=== PATIENT | female | born 1970 | race Caucasian/White ===

== ENCOUNTER 2017-05-04 11:24 | Inpatient (IN) ==
[2017-05-04] MEDS ORDERED: NS 1,000 ML IV ONE (13:12)
[2017-05-04] MEDS ORDERED: VANCOMYCIN 1 GM/NS 1 GM/250 ML IVPB IV ONE (13:12)
[2017-05-04] MEDS ORDERED: ZOFRAN IV ONE (13:12)
[2017-05-04] MEDS ORDERED: MORPHINE IV ONE (13:12)
--- NOTE | 2017-05-04 13:14 | PROVIDER DOCUMENTATION ---
HPI-Rash/Wound/ReCheck - General Chief Complaint: Wound Recheck Stated Complaint: WOUND RECHECK Time Seen by Provider: 05/04/17 12:42 Source: patient Allergies/Adverse Reactions: Allergies Allergy/AdvReac Type Severity Reaction Status Date / Time doxycycline Allergy Severe ANAPHYLAXIS Verified 05/02/17 17:09 orange juice Allergy Intermediate RASH Verified 05/02/17 17:09 Sulfa (Sulfonamide Allergy Intermediate Unknown Verified 05/02/17 17:09 Antibiotics) [Sulfa(Sulfonamide Antibiotics)] tramadol Allergy Intermediate RASH Verified 05/02/17 17:09 ibuprofen Allergy NAUSEA/VOMI Verified 05/02/17 17:09 TING tramadol HCl * [From Ultram] AdvReac Mild NAUSEA/VOMITING; Verified 05/02/17 17: 09 STEPHENS Home Medications: Home Medication List Medication Instructions Recorded Confirmed Last Taken Type Clindamycin HCl 300 mg PO Q6HR #28 capsule 05/02/17 Unknown Rx Hydrocodone/APAP 5 mg/325 mg 1 tab PO Q6H PRN PRN #14 tablet 05/02/17 Unknown Rx [[place]-5] Ondansetron HCl [Ondansetron HCl] 4 mg PO Q4HR 05/02/17 05/02/17 05/02/17 History - History of Present Illness-Dermatology Nature of Presenting Problem: 46 year old WF presents for a recheck of her abscess which was drained on 2016. pt reports the swelling has decreased but the erythema has spread to both hips and down into her vagina. pt reports fever have persisted, max temp 101.5, and she has developed nausea, without vomiting, loss of appetite and weakness. pt reports she has been taking prescribed meds as directed. pt reports pain is keeping her awake at night. appears uncomfortable. Location: reports: genitalia, torso Body-Front/Back: 1 - abscess 2 - erythema Quality: reports: painful Severity: reports: mild Onset/Duration: reports: last week Timing: reports: still present, constant, getting worse Context/Associated Symptoms: reports: abscess Identifiable cause?: Yes Exposure: reports: unknown cause Review of Systems - Adult - REVIEW OF SYSTEMS - ADULT Constitutional: reports: see HPI, chills, fever, fatique Eyes: reports: no symptoms reported. denies: discharge, blurred vision, double vision Ears, Nose, Mouth & Throat: reports: no symptoms reported. denies: ear discharge, ear pain, nose pain, loose teeth, throat pain, throat swelling Cardiovascular: reports: no symptoms reported. denies: chest pain, palpitations , syncope Respiratory: reports: no symptoms reported. denies: chronic cough, cough, shortness of breath, wheezing Gastrointestinal: reports: see HPI, nausea, poor appetite. denies: abdominal pain, diarrhea, vomiting Genitourinary: reports: no symptoms reported. denies: dysuria, hematuria, urgency Musculoskeletal: reports: no symptoms reported. denies: bone pain, joint pain, joint swelling, neck pain Integumentary: reports: see HPI, rash, skin sores/ulcer. denies: hives Neurological: reports: no symptoms reported Psychiatric: reports: no symptoms reported Endocrine: reports: no symptoms reported Hematologic/Lymphatic: reports: no symptoms reported Allergic/Immunologic: reports: no symptoms reported All Other Systems: Reviewed and Negative Past History - Adult - PAST MEDICAL HISTORY-ADULT Review of Records: reports: Old Records Reviewed, Nursing Assessment Review, Medications Reviewed, Social history reviewed & non-contributory. Major Childhood Illnesses: reports: denies history Cardiovascular: reports: denies history Respiratory: reports: denies history Gastrointestinal: reports: IBS Obstetrical/Gynecological: reports: endometriosis, other (uterine prolapse) Genitourinary: reports: denies history Musculoskeletal: reports: arthritis, chronic pain, fibromyalgia, intervertebral disc disease Neurological: reports: headaches/migraines Endocrine/Immune: reports: denies history Other Conditions: reports: denies history - PRIOR SURGERIES/PROCEDURES Surgical/Procedure History: reports: colonoscopy, hysterectomy, tonsillectomy, orthopedic (extremity) - IMMUNIZATION STATUS Childhood Immunizations: See Nurse Assessment Flu Vaccine: See Nurse Assessment - FAMILY HISTORY Family History: reviewed, not pertinent - SOCIAL HISTORY Smoking: cigarettes Provider spent 3-5 mins advising pt. on dangers of tobacco.: Discussed manners to quit use, and f/u contacts for add'l counseling. Substance Use: none/never Alcohol Use Frequency: never Physical Exam-General - PHYSICAL EXAM-ADULT Initial Vital Signs Reviewed: Yes - CONSTITUTIONAL General Appearance: appears well, alert, no apparent distress. negative: mild distress, moderate distress, severe distress - EYES Eyes: pink conjunctivae - HEAD, EARS, NOSE, MOUTH & THROAT HENMT: normocephalic/atraumatic, moist mucous membranes - NECK Neck: non-tender, full range of motion, supple, normal inspection - RESPIRATORY Respiratory: chest non-tender, lungs clear, normal breath sounds, no pleuratic chest pain, no respiratory distress, no accessory muscle use. negative: respiratory distress, decreased breath sounds, accessory muscle use, crackles, rales, rhonchi, stridor, wheezing - CARDIOVASCULAR Cardiovascular: normal peripheral pulses, regular rate, rhythm - GASTROINTESTINAL (ABDOMEN) Abdominal Exam: normal bowel sounds, non tender, soft - GENITOURINARY Female Genitalia/Pelvic Exam: other (erythema spreading from LLQ down into bilateral labia, left greater than right. left labia majoria tender to touch, perinuem nontender to palpation.). negative: external exam normal - LYMPHATIC Lymphatic: inguinal node tender (left) - MUSCULOSKELETAL Back Exam: normal inspection, no CVA tenderness, no vertebral tenderness. negative: CVA tenderness, decreased range of motion, swelling, vertebral tenderness Extremity: normal range of motion, non-tender, normal gait, normal inspection, no pedal edema, no calf tenderness, normal capillary refill. negative: deformity, erythema, swelling, tenderness Peripheral Pulses: radial (R): 3+, radial (L): 3+, dorsalis-pedis (R): 3+, dorsalis-pedis (L): 3+ - SKIN Integumentary: normal color, normal turgor, warm/dry, erythema, swelling (right lower pelvic region with abscess and diffuse surrounding erythema spreading to the left lateral hip, vagina and right hip region. diffusely tender to palpation. abscess has beedn drained, removed packing. area remains firm to the touch.), tenderness - NEUROLOGIC Neurologic: grossly normal, no motor/sensory deficits - PSYCHIATRIC Psych/Mental Status: normal mood/affect, normal thought content, normal thought process, oriented x 3 Progress - PLAN OF CARE/RESULTS Progress/Plan/Lab Results: Vital Signs - 8 hr 05/04/17 11:34 Temperature 98.1 F Pulse Rate 90 Respiratory Rate 18 Blood Pressure 117/61 O2 Sat by Pulse Oximetry 97 Laboratory Results - last 24 hr 05/04/17 05/04/17 05/04/17 13:25 13:25 13:25 WBC 13.31 H RBC 4.49 Hgb 14.4 Hct 42.4 MCV 94.4 MCH 32.1 H MCHC 34.0 RDW Std Deviation 13.1 Plt Count 220 MPV 10.6 H Immature Gran % (Auto) 0.4 Neut % (Auto) 72.0 Lymph % (Auto) 16.9 L [place] % (Auto) 8.9 Eos % (Auto) 1.1 Baso % (Auto) 0.7 Immature Gran # (Auto) 0.05 H Neut # (Auto) 9.59 H Lymph # (Auto) 2.25 [place] # (Auto) 1.19 H Eos # (Auto) 0.14 Baso # (Auto) 0.09 PT 12.7 INR 0.88 APTT (Factor Assay) 32.3 Sodium 134 L Potassium 4.3 D Chloride 97 L Carbon Dioxide 26 Anion Gap 10 BUN 4 L Creatinine 0.5 Estimated GFR/1.73 m2 > 60 BUN/Creatinine Ratio 8 Glucose 90 Calculated Osmolality 265 Calcium 9.1 Total Bilirubin 0.30 AST 16 ALT 9 L Alkaline Phosphatase 71 Total Protein 7.5 Albumin 3.7 Globulin 4.0 Albumin/Globulin Ratio 1.0 Plasma Lactate Urine Source Urine Color Urine Clarity Urine pH Ur Specific [place] Urine Protein Urine Ketones Urine Blood Urine Nitrite Urine Bilirubin Urine Urobilinogen Urine Microscopic RBC Urine WBC Urine Microscopic WBC Ur Epithelial Cells Urine Glucose 05/04/17 05/04/17 13:28 13:44 WBC RBC Hgb Hct MCV MCH MCHC RDW Std Deviation Plt Count MPV Immature Gran % (Auto) Neut % (Auto) Lymph % (Auto) [place] % (Auto) Eos % (Auto) Baso % (Auto) Immature Gran # (Auto) Neut # (Auto) Lymph # (Auto) [place] # (Auto) Eos # (Auto) Baso # (Auto) PT INR APTT (Factor Assay) Sodium Potassium Chloride Carbon Dioxide Anion Gap BUN Creatinine Estimated GFR/1.73 m2 BUN/Creatinine Ratio Glucose Calculated Osmolality Calcium Total Bilirubin AST ALT Alkaline Phosphatase Total Protein Albumin Globulin Albumin/Globulin Ratio Plasma Lactate 0.5 Urine Source CLEAN CATCH Urine Color YELLOW Urine Clarity CLEAR Urine pH 6.5 Ur Specific [place] 1.005 Urine Protein NEGATIVE Urine Ketones NEGATIVE Urine Blood 1+ A Urine Nitrite NEGATIVE Urine Bilirubin NEGATIVE Urine Urobilinogen NORMAL Urine Microscopic RBC <10 Urine WBC NEGATIVE Urine Microscopic WBC <10 Ur Epithelial Cells >10 A Urine Glucose NEGATIVE Orders Category Date Time Status Call Admitting on Arrival AT ADMISSION Care 05/04/17 15:26 Active Saline Loc NOW Care 05/04/17 13:[address] ABD/PELVIS W/ IV CONT ONLY [CT] Stat Exams 05/04/17 14:01 Completed BLOOD CULTURE [BLDCUL] Stat Lab 05/04/17 13:25 Results CBC WITH ELECTRONIC DIFF [HEME] Stat Lab 05/04/17 13:25 Completed COMPREHENSIVE METABOLIC PANEL [CHEM] Stat Lab 05/04/17 13:25 Completed LACTATE, PLASMA [CHEM] Stat Lab 05/04/17 13:28 Completed PROTIME WITH INR PL [COAG] Stat Lab 05/04/17 13:[address] [COAG] Stat Lab 05/04/17 13:25 Completed ROUTINE CULTURE [RM] Stat Lab 05/04/17 15:[address] W/POSS RFLX CULT [URINALYSIS] Stat Lab 05/04/17 13:44 Completed 0.9% Sodium Chloride Inj [Ns] 1,000 ml Med 05/04/17 13:12 Discontinued IV 999 mls/hr Hydromorphone [Dilaudid] Med 05/04/17 14:45 Discontinued 1 mg IV NOW ONE Morphine Med 05/04/17 13:12 Discontinued 4 mg IV NOW ONE Ondansetron [Zofran] Med 05/04/17 13:12 Discontinued 4 mg IV NOW ONE Vancomycin 1 gm/Ns Med 05/04/17 13:12 Discontinued 1 gm in 250 ml IV NOW EKG [EKG] Stat Ther 05/04/17 13:11 Ordered Transfer/Admit Order [TRANSFER] Routine Transfer 05/04/17 15:27 Ordered Laboratory Tests 05/04/17 05/04/17 05/04/17 13:25 13:25 13:25 WBC 13.31 H RBC 4.49 Hgb 14.4 Hct 42.4 MCV 94.4 MCH 32.1 H MCHC 34.0 RDW Std Deviation 13.1 Plt Count 220 MPV 10.6 H Immature Gran % (Auto) 0.4 Neut % (Auto) 72.0 Lymph % (Auto) 16.9 L [place] % (Auto) 8.9 Eos % (Auto) 1.1 Baso % (Auto) 0.7 Immature Gran # (Auto) 0.05 H Neut # (Auto) 9.59 H Lymph # (Auto) 2.25 [place] # (Auto) 1.19 H Eos # (Auto) 0.14 Baso # (Auto) 0.09 PT 12.7 INR 0.88 APTT (Factor Assay) 32.3 Sodium 134 L Potassium 4.3 D Chloride 97 L Carbon Dioxide 26 Anion Gap 10 BUN 4 L Creatinine 0.5 Estimated GFR/1.73 m2 > 60 BUN/Creatinine Ratio 8 Glucose 90 Calculated Osmolality 265 Calcium 9.1 Total Bilirubin 0.30 AST 16 ALT 9 L Alkaline Phosphatase 71 Total Protein 7.5 Albumin 3.7 Globulin 4.0 Albumin/Globulin Ratio 1.0 Plasma Lactate Urine Source Urine Color Urine Clarity Urine pH Ur Specific [place] Urine Protein Urine Ketones Urine Blood Urine Nitrite Urine Bilirubin Urine Urobilinogen Urine Microscopic RBC Urine WBC Urine Microscopic WBC Ur Epithelial Cells Urine Glucose 05/04/17 05/04/17 13:28 13:44 WBC RBC Hgb Hct MCV MCH MCHC RDW Std Deviation Plt Count MPV Immature Gran % (Auto) Neut % (Auto) Lymph % (Auto) [place] % (Auto) Eos % (Auto) Baso % (Auto) Immature Gran # (Auto) Neut # (Auto) Lymph # (Auto) [place] # (Auto) Eos # (Auto) Baso # (Auto) PT INR APTT (Factor Assay) Sodium Potassium Chloride Carbon Dioxide Anion Gap BUN Creatinine Estimated GFR/1.73 m2 BUN/Creatinine Ratio Glucose Calculated Osmolality Calcium Total Bilirubin AST ALT Alkaline Phosphatase Total Protein Albumin Globulin Albumin/Globulin Ratio Plasma Lactate 0.5 Urine Source CLEAN CATCH Urine Color YELLOW Urine Clarity CLEAR Urine pH 6.5 Ur Specific [place] 1.005 Urine Protein NEGATIVE Urine Ketones NEGATIVE Urine Blood 1+ A Urine Nitrite NEGATIVE Urine Bilirubin NEGATIVE Urine Urobilinogen NORMAL Urine Microscopic RBC <10 Urine WBC NEGATIVE Urine Microscopic WBC <10 Ur Epithelial Cells >10 A Urine Glucose NEGATIVE Orders Category Date Time Status Call Admitting on Arrival AT ADMISSION Care 05/04/17 15:26 Active Saline Loc NOW Care 05/04/17 13:[address] ABD/PELVIS W/ IV CONT ONLY [CT] Stat Exams 05/04/17 14:01 Completed BLOOD CULTURE [BLDCUL] Stat Lab 05/04/17 13:25 Results CBC WITH ELECTRONIC DIFF [HEME] Stat Lab 05/04/17 13:25 Completed COMPREHENSIVE METABOLIC PANEL [CHEM] Stat Lab 05/04/17 13:25 Completed LACTATE, PLASMA [CHEM] Stat Lab 05/04/17 13:28 Completed [address]IME WITH INR PL [COAG] Stat Lab 05/04/17 13:[address] [COAG] Stat Lab 05/04/17 13:25 Completed ROUTINE CULTURE [RM] Stat Lab 05/04/17 15:[address] W/POSS RFLX CULT [URINALYSIS] Stat Lab 05/04/17 13:44 Completed 0.9% Sodium Chloride Inj [Ns] 1,000 ml Med 05/04/17 13:12 Discontinued IV 999 mls/hr Hydromorphone [Dilaudid] Med 05/04/17 14:45 Discontinued 1 mg IV NOW ONE Morphine Med 05/04/17 13:12 Discontinued 4 mg IV NOW ONE Ondansetron [Zofran] Med 05/04/17 13:12 Discontinued 4 mg IV NOW ONE Vancomycin 1 gm/Ns Med 05/04/17 13:12 Discontinued 1 gm in 250 ml IV NOW EKG [EKG] Stat Ther 05/04/17 13:11 Ordered Transfer/Admit Order [TRANSFER] Routine Transfer 05/04/17 15:27 Ordered Vital Signs - 24 hr 05/04/17 11:34 Temperature 98.1 F Pulse Rate 90 Respiratory Rate 18 Blood Pressure 117/61 O2 Sat by Pulse Oximetry 97 Reviewed lab, radiology, H&P with Dr. Leavitt, agree with plan of care, treatment, admission. Result Diagrams: 05/04/17 13:25 05/04/17 13:25 - REASSESSMENT Reassessment #1 Time Reassessed: 14:45 Status: unchanged (pt returned from CT abd/pelvis; reports pain unchanged since morphine, will medicate with dilaudid.) Reassessment #2 Time Reassessed: 15:24 Status: improving - CT/MRI 1 CT Study: Abdomen, Pelvis Impression: Normal (left inguinal ulceration with sucbutaneous edema, no fluid collection or abscess, see EMR for additional nonacute findings. per Dr. Gaona) - CONSULTS/PCP/HOSPITALIST Notification #1 *Consult/PCP/Hospitalist*: Dr. Walker Time Discussed: 15:24 Reason/Comments: accepted admission. Consult Disposition: Admit (will evaluate upstairs) Departure - Departure Date of Disposition Decision: 05/04/17 Time of Disposition Decision: 15:24 DIAGNOSIS: Inguinal abscess Disposition: ADMITTED INPATIENT 09 Certified Medical Emergency: Emergent Condition: Stable Referrals and Follow-Ups: None,PCP [Primary Care Provider] - - Critical Care Note This patient required my direct & personal management of CC.: No Attestation - Physician/ SCOOTER Attestation Patient care was provided by Advanced Practice Provider:: Yes Advanced Practice Provider:: Dimple Hull Advanced Practice Provider documentation review:: The Mid-level provider documentation, treatment plan and medical decision making was reviewed by the physician who agrees with all treatment and medical decision making by the MLP. The physician spent face to face time with patient:: No Advanced Practice Provider documentation review:: Supervising physician onsite and consulted in the evaluation and care of this patient. The physician did not have a face to face encounter with the patient.
[2017-05-04 13:35] LABS: MANUAL DIFF NEEDED? NO
[2017-05-04 13:36] LABS: BASO% 0.7 % (0.0-0.8); EOS# 0.14 X1000 (0.0-0.7); EOS% 1.1 % (0.0-10.0); HEMATOCRIT 42.4 % (37.0-47.0); HEMOGLOBIN 14.4 g/dL (12.0-16.0); IMM GRAN# 0.05 X1000 (0.0-0.04); IMM GRAN% 0.4 % (0.0-0.5); LYMPH# 2.25 X1000 (1.2-3.4); LYMPH% 16.9 % (20.5-51.1); MCH 32.1 PG (27-31); MCV 94.4 FL (81-99); MONO# 1.19 X1000 (0.11-0.59); MONO% 8.9 % (1.7-9.3); MPV 10.6 FL (7.4-10.4); PLT 220 X1000 (130-400); RBC 4.49 XMIL (4.2-5.4)
[2017-05-04 13:49] LABS: URINE CULTURE PL NEEDED? NO
[2017-05-04 13:57] LABS: AGAP 10; ALBUMIN 3.7 g/dL (3.5-5.0); ALKALINE PHOSPHATASE 71 U/L (32-104); BUN 4 mg/dL (8-22); CALCIUM 9.1 mg/dL (8.8-10.2); CHLORIDE 97 mmol/L (98-107); COSMO 265; GOT 16 U/L (10-30); GPT 9 U/L (10-36); POTASSIUM 4.3 mmol/L (3.5-5.1); SODIUM 134 mmol/L (136-145); TCO2 26 mmol/L (25-35); TOTAL PROTEIN 7.5 g/dL (6.3-8.3)
[2017-05-04 14:02] LABS: BILIRUBIN URINE NEGATIVE (NEGATIVE); BLOOD URINE 1+ (NEGATIVE); CLARITY CLEAR (CLEAR); COLOR YELLOW; GLUCOSE URINE NEGATIVE (NEGATIVE); LEUKOCYTES URINE NEGATIVE (NEGATIVE); NITRITE URINE NEGATIVE (NEGATIVE); PH URINE 6.5; PROTEIN URINE NEGATIVE (NEGATIVE); SP GRAVITY URINE 1.005; UROBILINOGEN URINE NORMAL
[2017-05-04 14:08] LABS: INR 0.88 (0.86-1.15); PROTIME 12.7 Seconds (12.1-15.5)
[2017-05-04 14:09] LABS: PTT PL 32.3 Seconds (22.6-43.9)
[2017-05-04 14:22] LABS: URINE EPITHELIAL CELLS >10 /HPF (<10); URINE RBC <10 /HPF (<10); URINE SOURCE CLEAN CATCH; URINE WBC <10 /HPF (<10)
[2017-05-04] MEDS ORDERED: DILAUDID IV ONE (14:45)
--- NOTE | 2017-05-04 14:48 | Diag Imaging Result Doc PS360 ---
EXAM: CT ABD/PELVIS W/ IV CONT ONLY HISTORY: LLL abscess; please eval for progression TECHNIQUE: CT abdomen and pelvis with intravenous contrast. Dose reduction protocol. COMPARISON: 07/30/2016 FINDINGS: No calcified gallstones or adjacent inflammation. I believe there is mild fatty infiltration of the liver. Normal spleen, pancreas, and adrenal glands. There are several tiny renal cysts. The kidneys are otherwise normal. No hydronephrosis. No aortic aneurysm. No bowel obstruction. Normal appendix. No intra-abdominal abscess. The urinary bladder is moderately distended and appears normal. There are small ovarian cysts. The uterus has been removed. There is subcutaneous edema in the left inguinal region. There are small ulceration with an air-filled cavity measuring 18 mm in maximum diameter. No fluid collection. No soft tissue mass. Mildly prominent bilateral inguinal lymph nodes IMPRESSION: 1.Left inguinal ulceration with subcutaneous edema, but no fluid collection/abscess. 2.Mild fatty infiltration of the liver 3.Hysterectomy Electronically signed by Jeb Gaona 05/04/2017 2:46 PM
[2017-05-04] MEDS ORDERED: VANCOMYCIN IV PER PHARMACY MISC SCH (17:28)
[2017-05-04] MEDS ORDERED: TYLENOL PO PRN (17:57)
[2017-05-04] MEDS: ZOSYN 3.375 GM/NS 3.375 GM/50 ML IVPB IV SCH ×2 (18:50→23:31)
[2017-05-04] MEDS: ZOFRAN IV PRN (18:50)
[2017-05-04] MEDS: NS 1,000 ML IV SCH (18:50)
[2017-05-04] MEDS: NICODERM PATCH TD SCH (18:51)
[2017-05-04] MEDS: MORPHINE IV PRN (18:51)
--- NOTE | 2017-05-04 19:55 | HISTORY AND PHYSICAL ---
PRIMARY CARE PHYSICIAN: cSarlett Dash MD CHIEF COMPLAINT: Abscess left groin. HISTORY OF PRESENT ILLNESS: This is a 46-year-old female with a history of fibromyalgia, irritable bowel syndrome, endometriosis, chronic back pain and migraines. She presents to the emergency room for followup for a left groin abscess. Reportedly the patient presented to the emergency room 2 days prior at the start of this abscess with fevers going up as high as 102 and underwent an incision and drainage at the bedside with return of a large amount of blood-tinged purulent fluid. Culture comes back as gram-positive cocci. She was discharged on clindamycin after wound was packed. She returns today complaining of increase in pain and fever, as well as redness to this site. She said she has had some scant drainage over the last 2 days. Blood cultures were drawn. She was given vancomycin and she is being admitted for further evaluation and treatment. PAST MEDICAL HISTORY: Chronic back pain. Endometriosis. History of migraines. History of fibromyalgia. Anxiety. Depression. PAST SURGICAL HISTORY: Hysterectomy. Tubal ligation. Tonsillectomy. SOCIAL HISTORY: She smokes up to 2 packs a day with rare use of alcohol and she denies illicit drug use. ALLERGIES: Doxycycline which causes anaphylaxis. Sulfa with unknown reaction. Tramadol, Ibuprofen which cause nausea, vomiting and a rash. HOME MEDICATIONS: Clindamycin 300 mg q.6 hours. [place] 5 q.6 hours p.r.n. REVIEW OF SYSTEMS: A 14 point review of systems is discussed with patient with pertinent positives stated in the HPI. She denied chest pain, palpitations, dizziness, syncope, nausea, vomiting, diarrhea, constipation, black or bloody vomitus, black or bloody stools, hematuria, dysuria, frequency, urgency. PHYSICAL EXAMINATION: GENERAL: This is a 46-year-old female who is lying back in the bed in no distress. VITAL SIGNS: Blood pressure is 104/66 with a heart rate of 95, respirations are 18, temperature is 98.1 degrees, with room air saturation of 97-98%. HEENT: Head is normocephalic, atraumatic. Pupils equal, round, react to light. EOMs are intact. Sclerae anicteric. Mucous membranes are moist. NECK: Supple. Trachea midline. CARDIOVASCULAR: Regular rate and rhythm. S1, S2 appreciated. PULMONARY: Breath sounds are clear. No increased work of breathing noted. GASTROINTESTINAL: Abdomen is soft, nondistended, nontender with bowel sounds noted. MUSCULOSKELETAL: Good range of motion of joints with left lower extremity limited to pain. SKIN: Warm and dry with erythema noted from her left groin, extending down to her labia bilateral with left greater than right. She is tender to palpation. There is an incision about approximately 1/4 of an inch long from incision and drainage 2 days prior. There is no drainage at present. LABORATORY AND IMAGING: WBC is 13.3. Of note, it was 15.5 48 hours prior with hemoglobin 14.4, hematocrit 42.4 and platelets of 220,000. Sodium 134, potassium 4.3, BUN 4, creatinine 0.5 with a glucose of 90. Urinalysis is essentially negative. CT scan of the abdomen and pelvis revealed left inguinal ulceration with subcutaneous edema. No fluid collection or abscess. Mild fatty infiltration of the liver. Hysterectomy. No soft tissue mass. Mildly prominent bilateral inguinal lymph nodes. ASSESSMENT AND PLAN: 1. Left groin abscess, currently growing gram-positive cocci. 2. Leukocytosis. 3. Chronic back pain. 4. Anxiety and depression, history of. 5. Deep venous thrombosis prophylaxis. 6. Gastrointestinal prophylaxis. PLAN: She will be admitted to the hospital. We will give IV hydration as well as pain and nausea control. We will give vancomycin and Zosyn for antibiotic coverage. Once cultures return antibiotics may be changed according to results of sensitivities. For deep venous thrombosis prophylaxis we will use Sequential [employer]ression Devices and gastrointestinal prophylaxis Protonix. We will repeat laboratory in the morning. Further treatments pending hospital course. Dictated by CRYSTAL Bartholomew for Madhu Walker MD cc: CRYSTAL Bartholomew MD appears to be just cellulitis, no depp infection, has failed therapy with clindamycin but only took rx for 24 hours agree with above APENOT MTDD
[2017-05-04] MEDS ORDERED: VANCOMYCIN 1,800 MG in NS 250 ML IV ONE (20:00)
[2017-05-04] MEDS: PERCOCET-5 PO PRN (21:49)
[2017-05-05] MEDS: MORPHINE IV PRN ×2 (03:29→07:40)
[2017-05-05] MEDS: ZOSYN 3.375 GM/NS 3.375 GM/50 ML IVPB IV SCH ×2 (05:20→11:17)
[2017-05-05] MEDS: NS 1,000 ML IV SCH ×2 (05:20→15:59)
[2017-05-05 06:02] LABS: HEMATOCRIT 39.9 % (37.0-47.0); HEMOGLOBIN 13.1 g/dL (12.0-16.0); MCH 31.3 PG (27-31); MCHC 32.8 g/dL (33-37); MCV 95.5 FL (81-99); MPV 10.4 FL (7.4-10.4); RBC 4.18 XMIL (4.2-5.4)
[2017-05-05 06:32] LABS: AGAP 10; BUN 4 mg/dL (8-22); CALCIUM 8.5 mg/dL (8.8-10.2); CHLORIDE 108 mmol/L (98-107); COSMO 282; SODIUM 143 mmol/L (136-145); TCO2 25 mmol/L (25-35)
[2017-05-05] MEDS: VANCOMYCIN 1,350 MG in NS 250 ML IV SCH (07:40)
[2017-05-05] MEDS: PRILOSEC PO SCH (07:40)
[2017-05-05] MEDS: ZOFRAN IV PRN (08:11)
[2017-05-05] MEDS: NICODERM PATCH TD SCH (08:11)
[2017-05-05] MEDS ORDERED: KLOR-CON PO ONE (08:12)
--- NOTE | 2017-05-05 08:31 | PROGRESS NOTE ---
DATE: 05/05/2017 SUBJECTIVE: The patient notes that she is still hurting, although it is slightly better than yesterday. States the pain is somewhat more tolerable. Denies any fevers or chills currently. OBJECTIVE: Vital Signs: On physical, temp 97, pulse 80, respiratory 18, BP 130/75, satting 98% on room air. General: Patient is awake, alert, oriented. Currently in no real respiratory distress. Pleasant to talk with. Neck: Supple. CV: Regular rate. Chest: Relatively clear. Abdomen: Soft. Extremities: Moves all extremities. Neurologic: No changes. LABORATORY DATA: Wound culture growing gram-positive cocci. WBCs 13, potassium 3.0. ASSESSMENT: 1. Hypokalemia. Will replace. 2. Leukocytosis, improved. 3. Left groin abscess growing gram-positive cocci. Continue vancomycin and Zosyn. We will continue Percocet and morphine as needed for pain. 4. Chronic back pain. 5. Chronic anxiety and depression. PLAN: As noted above. We will continue antibiotics until culture delineates which antibiotics to stay on. We will continue her home medications. cc: Clay Aguilar MD
[2017-05-05] MEDS: PERCOCET-5 PO PRN ×3 (11:22→20:59)
[2017-05-06] MEDS: ZOSYN 3.375 GM/NS 3.375 GM/50 ML IVPB IV SCH ×5 (00:46→21:55)
[2017-05-06] MEDS: PERCOCET-5 PO PRN ×5 (01:11→21:55)
[2017-05-06] MEDS: VANCOMYCIN 1,350 MG in NS 250 ML IV SCH (01:41)
[2017-05-06] MEDS: NS 1,000 ML IV SCH ×2 (03:43→14:24)
[2017-05-06] MEDS: PRILOSEC PO SCH (06:11)
[2017-05-06] MEDS: NICODERM PATCH TD SCH (08:49)
--- NOTE | 2017-05-06 08:53 | PROGRESS NOTE ---
DATE: 05/06/2017 SUBJECTIVE: Patient without any new complaints. Does state the pain is a little bit better. Denies any chest pains or palpitations. Denies any fevers or chills. OBJECTIVE: Vital Signs Reviewed: Temperature 97 degrees, pulse 76, respiratory rate 18, BP 129/74, satting 98% on room air. General: Patient is awake, alert, oriented. Currently in no real respiratory distress. Speech is regular. Memory is intact. Neck: Supple. CV: Regular rate. Chest: Clear. Abdomen: Soft. Extremities: Moves all extremities. ASSESSMENT: 1. Left groin abscess currently growing gram-positive cocci. Certainly expect this to be methicillin-resistant Staphylococcus aureus which is presumptive. We will continue to follow. Continue vancomycin. 2. Leukocytosis. 3. Chronic back pain. 4. Anxiety and depression. PLAN: We will continue patient on vancomycin and Zosyn until final culture results. Certainly may need S[employer]IOR [employer]CTURING SUPERVISOR involvement. Will follow further orders as needed. cc: Clay Aguilar MD
[2017-05-06] MEDS: ZOFRAN IV PRN (12:03)
[2017-05-06] MEDS: VANCOMYCIN 1 GM/NS 1 GM/250 ML IVPB IV SCH (14:24)
[2017-05-06] MEDS: MORPHINE IV PRN (16:44)
[2017-05-07] MEDS: VANCOMYCIN 1 GM/NS 1 GM/250 ML IVPB IV SCH ×2 (01:53→14:01)
[2017-05-07] MEDS: PERCOCET-5 PO PRN ×5 (01:58→22:17)
[2017-05-07] MEDS: ZOSYN 3.375 GM/NS 3.375 GM/50 ML IVPB IV SCH (04:25)
[2017-05-07] MEDS: NS 1,000 ML IV SCH ×3 (05:55→20:51)
[2017-05-07] MEDS: PRILOSEC PO SCH ×2 (05:57→10:54)
[2017-05-07 06:39] LABS: AGAP 7; BUN 2 mg/dL (8-22); CALCIUM 8.2 mg/dL (8.8-10.2); CHLORIDE 110 mmol/L (98-107); COSMO 283; POTASSIUM 3.5 mmol/L (3.5-5.1); SODIUM 144 mmol/L (136-145); TCO2 26 mmol/L (25-35)
[2017-05-07 06:45] LABS: HEMATOCRIT 34.1 % (37.0-47.0); MCH 30.5 PG (27-31); MCHC 32.3 g/dL (33-37); MCV 94.5 FL (81-99); MPV 10.2 FL (7.4-10.4); RBC 3.61 XMIL (4.2-5.4)
--- NOTE | 2017-05-07 09:11 | PROGRESS NOTE ---
DATE: 05/07/2017 SUBJECTIVE: The patient notes she is having an increased pain in the lower abdomen and groin region. States that it is no longer draining. PHYSICAL EXAMINATION: Vital Signs: Reviewed. Temperature 98 degrees, pulse 73, respiratory rate 18, BP 115/70, saturation 98% on room air. General: Patient is awake, alert, currently in no respiratory distress. She is pleasant to talk with, although she is in pain. HEENT: Normocephalic, atraumatic. [place]. Neck: Supple. CV: Regular rate. Chest: Clear. Abdomen: Soft. She is noted to have mildly increased indurated area in the left groin region that is much more tender. ASSESSMENT: 1. Left groin abscess. We will consult surgery as this likely will need to be incised and drained. 2. Methicillin-resistant Staphylococcus aureus. Continue vancomycin. 3. Leukocytosis, resolved 4. Chronic anxiety and depression. PLAN: We will consult cardiology. We will increase oxycodone. She notes that it helps but it does not last quite long enough. Further orders as needed. cc: Clay Aguilar MD
[2017-05-07] MEDS: XANAX PO PRN (11:38)
[2017-05-07] MEDS: NICODERM PATCH TD SCH (11:38)
[2017-05-07] MEDS: MORPHINE IV PRN ×2 (13:39→20:33)
--- NOTE | 2017-05-07 16:36 | CONSULTATION ---
DATE OF CONSULTATION: 05/07/2017 HISTORY OF PRESENT ILLNESS: This is a 45-year-old female, who presented to the emergency department over the weekend with left groin pain and swelling. She had an abscess that was I and D'd, felt initially better but Thursday she began developing increasing pain and erythema again prompting her readmission. She was admitted to Medicine Service and treated with antibiotics. She has some concern of reaccumulation of her abscess as this has stopped draining. I have been consulted for management. MEDICAL HISTORY: Chronic back pain. Endometriosis. Migraines. Fibromyalgia. Anxiety. Depression. SURGICAL HISTORY: Hysterectomy. Tubal ligation. Tonsillectomy. SOCIAL HISTORY: Two packs a day. No alcohol. Lives here in [place]. REVIEW OF SYSTEMS: Ten point negative except for what is mentioned in HPI. Negative for blood thinners. PHYSICAL EXAMINATION: Vital Signs: Temperature is 98.6 degrees, pulse 73, blood pressure 115/70, O2 saturation 98% on room air. General: She is alert, in no acute distress. HEENT: There is no scleral icterus. I do not see a cervical mass. Cardiovascular: Normal rate , regular rhythm. Pulmonary: No increased work of breathing. Abdomen: Soft, nontender, nondistended. Left Groin: You can see a ink kee where there was erythema that has resided. There is some induration and possible some fluctuance at a previous I and D. I do not see any purulence at this point. I probed the wound and there was purulence expressed with a pocket of pus that was expressed but I felt no loculations. I do not see any cellulitis or induration extending into her thigh or her labia. LABS: White count 7, hematocrit 34. Creatinine 0.5. Glucose 101. ASSESSMENT AND PLAN: This is a 46-year-old female, with a left groin abscess that was incised and drained by the emergency department. She had been to the hospitalist with pain and it appears that the incision had closed back and with some reaccumulation of purulence. I was able to probe the wound. I think it is adequately drained at this point, she just needs more aggressive wound care with twice daily dressing changes and continuation of her antibiotics. Her blood cultures have grown Staphylococcus aureus. Blood cultures are negative. We will continue to follow along but in the meantime, we will continue dressing changes. If she worsens clinically or I feel that she is not adequately drained she will need to go the operating room for formal incision and drainage and making a larger incision here. I do not see any necrosis and there is very minimal cellulitis associated with this. I think she will get better now with more aggressive dressing changes. We will continue to follow along. cc: Mariya Browne MD MTDD
[2017-05-08] MEDS: VANCOMYCIN 1 GM/NS 1 GM/250 ML IVPB IV SCH ×2 (01:11→14:35)
[2017-05-08] MEDS: PERCOCET-5 PO PRN ×3 (04:23→17:34)
[2017-05-08] MEDS: PRILOSEC PO SCH (06:12)
[2017-05-08] MEDS: MORPHINE IV PRN ×3 (08:52→20:37)
[2017-05-08] MEDS: NS 1,000 ML IV SCH ×3 (08:52→23:00)
[2017-05-08] MEDS: XANAX PO PRN ×2 (08:53→20:37)
[2017-05-08] MEDS: DIFLUCAN PO SCH (10:27)
--- NOTE | 2017-05-08 11:43 | PROGRESS NOTE ---
DATE: 05/08/2017 SUBJECTIVE: Ms. Oakes is having a little more pain and pressure in her lower abdomen and groin region. We have recently begun packing this wound twice a day. OBJECTIVE: VITAL SIGNS: Blood pressure is 132/74 with a heart rate of 77 and respirations 18. Temperature is 98.4. Room air saturations are 98% to 100%. CARDIOVASCULAR: Regular rate and rhythm, S1 and S2 appreciated. PULMONARY: Breath sounds are clear, with no increased work of breathing noted. GASTROINTESTINAL: Abdomen is soft, nontender, and nondistended, with bowel sounds in all 4 quadrants. INTEGUMENTARY: Redness to left groin is improving. Packing is noted to be in place. She does have more tenderness in that area and pressure due to packing. We appreciate Dr. Browne's help. ASSESSMENT: 1. Left groin abscess. 2. Methicillin-resistant Staphylococcus aureus. 3. Leukocytosis, resolved. 4. Chronic anxiety and depression. PLAN: We will continue with the current treatment. Continue packing this wound every 12 hours. Further orders as needed. Dictated by CRYSTAL Bartholomew for Clay Aguilar MD cc: CRYSTAL Bartholomew MD
[2017-05-08] MEDS: NICODERM PATCH TD SCH (14:34)
--- NOTE | 2017-05-08 17:10 | PROGRESS NOTE ---
DATE: 05/08/2017 SUBJECTIVE: Patient notes that she is feeling better. She had lots of pain yesterday during the I D. Pain is now well-controlled, except for when she has to be repacked. PHYSICAL EXAMINATION: Vital Signs: Reviewed. She is afebrile. Blood pressure stable. Heart rate 80s, respiratory 20. General: Patient is awake, alert. She is currently in no respiratory distress. Pleasant to talk with. Neck: Supple. Cardiovascular: Regular rate. Chest: Relatively clear. Abdomen: Soft. Extremities: Moves all extremities. Skin: She is noted to have the abscess area clean, dry, and intact, with a bandage. cc: Clay Aguilar MD
[2017-05-09] MEDS: VANCOMYCIN 1 GM/NS 1 GM/250 ML IVPB IV SCH ×2 (01:35→13:21)
[2017-05-09] MEDS: PERCOCET-5 PO PRN ×6 (01:35→23:42)
[2017-05-09] MEDS: PRILOSEC PO SCH (06:13)
[2017-05-09] MEDS: MORPHINE IV PRN ×2 (09:32→21:17)
[2017-05-09] MEDS: XANAX PO PRN ×2 (09:32→21:17)
[2017-05-09] MEDS: DIFLUCAN PO SCH (09:33)
[2017-05-09] MEDS: NS 1,000 ML IV SCH ×2 (09:35→23:48)
--- NOTE | 2017-05-09 10:43 | PROGRESS NOTE ---
DATE: 05/09/2017 SUBJECTIVE: The patient notes the pain is a little bit better. She is tolerating pain medication well. She has still not really been getting out of bed. Denies any nausea or vomiting. OBJECTIVE: Vital Signs: On physical examination, temperature 97 degrees, pulse 66, respiratory rate 18, BP 144/81, satting 98% on room air. General: The patient is awake, alert. She is in no respiratory distress. Pleasant to talk with. Neck: Supple. CV: Regular rate. Chest: Clear. Abdomen: Soft. Wound in her left groin is clean, dry and intact. ASSESSMENT: 1. Left groin abscess growing gram-positive methicillin-resistant Staphylococcus aureus. Continue vancomycin. 2. Leukocytosis, resolved 3. Chronic pain. 4. Anxiety, depression. PLAN: We will continue wound treatment. Continue to follow. Further orders as needed. cc: Clay Aguilar MD
[2017-05-09] MEDS: NICODERM PATCH TD SCH (13:20)
[2017-05-10] MEDS: VANCOMYCIN 1 GM/NS 1 GM/250 ML IVPB IV SCH ×2 (01:50→14:50)
[2017-05-10] MEDS: PERCOCET-5 PO PRN ×4 (05:11→22:41)
[2017-05-10] MEDS: PRILOSEC PO SCH (06:06)
[2017-05-10] MEDS: DIFLUCAN PO SCH (09:19)
[2017-05-10] MEDS: MORPHINE IV PRN ×2 (09:19→20:37)
[2017-05-10] MEDS: NICODERM PATCH TD SCH (09:19)
[2017-05-10] MEDS: XANAX PO PRN ×2 (09:19→20:37)
--- NOTE | 2017-05-10 11:25 | PROGRESS NOTE ---
DATE: 05/10/2017 SUBJECTIVE: The patient states that her pain is somewhat better. She states that she has been getting out of the bed to sit in the chair. She denies any nausea or vomiting. OBJECTIVE: Vital Signs: Blood pressure is 133/77 with a heart rate of 74, respirations are 18, temperature is 98.3 degrees, with oxygen saturation is of 97 to 100% on room air. General: This is a 46-year-old female who is sitting up in the bed, eating with no complaints. Neck: Supple. Trachea midline. Cardiovascular: Regular rate and rhythm. S1, S2 appreciated. Pulmonary: Breath sounds are clear. No increased work of breathing noted. Gastrointestinal: Abdomen is soft. She is nontender with bowel sounds in all 4 quadrants. Dressing to her left groin is dry and intact. ASSESSMENT: 1. Left groin abscess, growing gram-positive methicillin-resistant Staphylococcus aureus. We will continue with her current medical regimen. 2. Leukocytosis, resolved. 3. Chronic pain. 4. Anxiety and depression. PLAN: We will continue with wound treatment. Continue with her current antibiotic regimen. The patient will start to get out of bed to chair for meals, as well as walk in the halls. Dictated by CRYSTAL Bartholomew for Clay Aguilar MD cc: CRYSTAL Bartholomew MD
[2017-05-10 12:46] LABS: HEMATOCRIT 36.4 % (37.0-47.0); HEMOGLOBIN 12.4 g/dL (12.0-16.0); MCH 31.5 PG (27-31); MCHC 34.1 g/dL (33-37); MCV 92.4 FL (81-99); MPV 9.8 FL (7.4-10.4); RBC 3.94 XMIL (4.2-5.4)
[2017-05-10 13:05] LABS: AGAP 13; ALBUMIN 3.9 g/dL (3.5-5.0); ALKALINE PHOSPHATASE 56 U/L (32-104); BUN 3 mg/dL (8-22); CALCIUM 8.8 mg/dL (8.8-10.2); CHLORIDE 105 mmol/L (98-107); COSMO 279; GOT 9 U/L (10-30); GPT 9 U/L (10-36); POTASSIUM 3.2 mmol/L (3.5-5.1); SODIUM 141 mmol/L (136-145); TCO2 23 mmol/L (25-35); TOTAL PROTEIN 6.6 g/dL (6.3-8.3)
[2017-05-10] MEDS: NS 1,000 ML IV SCH ×2 (14:50→20:39)
[2017-05-11] MEDS: VANCOMYCIN 1 GM/NS 1 GM/250 ML IVPB IV SCH ×2 (01:10→14:36)
[2017-05-11 06:03] LABS: HEMATOCRIT 33.5 % (37.0-47.0); HEMOGLOBIN 11.1 g/dL (12.0-16.0); MCH 31.3 PG (27-31); MCHC 33.1 g/dL (33-37); MCV 94.4 FL (81-99); MPV 10.1 FL (7.4-10.4); RBC 3.55 XMIL (4.2-5.4)
[2017-05-11] MEDS: PRILOSEC PO SCH (06:11)
[2017-05-11] MEDS: PERCOCET-5 PO PRN ×3 (06:11→18:57)
[2017-05-11] MEDS: NS 1,000 ML IV SCH (06:15)
[2017-05-11 06:20] LABS: AGAP 9; ALBUMIN 3.2 g/dL (3.5-5.0); ALKALINE PHOSPHATASE 48 U/L (32-104); BUN 5 mg/dL (8-22); CALCIUM 8.2 mg/dL (8.8-10.2); CHLORIDE 108 mmol/L (98-107); COSMO 281; GOT 8 U/L (10-30); GPT 8 U/L (10-36); POTASSIUM 3.2 mmol/L (3.5-5.1); SODIUM 142 mmol/L (136-145); TCO2 25 mmol/L (25-35); TOTAL PROTEIN 5.8 g/dL (6.3-8.3)
[2017-05-11] MEDS: DIFLUCAN PO SCH (08:29)
[2017-05-11] MEDS: NICODERM PATCH TD SCH (08:30)
[2017-05-11] MEDS: MORPHINE IV PRN ×2 (10:57→22:38)
[2017-05-11] MEDS: XANAX PO PRN ×2 (10:58→22:38)
[2017-05-12] MEDS: VANCOMYCIN 1 GM/NS 1 GM/250 ML IVPB IV SCH ×2 (01:17→13:31)
[2017-05-12] MEDS: PERCOCET-5 PO PRN ×5 (01:18→21:37)
[2017-05-12] MEDS: PRILOSEC PO SCH (06:08)
--- NOTE | 2017-05-12 08:00 | PROGRESS NOTE ---
DATE: 05/11/2017 SUBJECTIVE: Patient notes she feels tremendously better this morning. Her pain is much improved. She is actually able to ambulate the brush. Denies any fevers or chills. States the drainage has all but disappeared. OBJECTIVE: Vital Signs: Reviewed. She is afebrile. Vital signs stable. Heart rate 85, respiratory 20. General: Patient is awake, alert. She is in no respiratory distress. Pleasant to talk with. Her pain appears much improved. HEENT: Normocephalic, atraumatic. ZOHRA. Neck: Supple. CV: Regular rate. Chest: Clear. Abdomen: Soft. Extremities: Moves all extremities. Skin: Inguinal region is improving. It is less indurated, less tender. ASSESSMENT: 1. Methicillin-resistant Staphylococcus aureus, left groin abscess. Status post incision and drainage x2. Currently on vancomycin, continues to improve. 2. Leukocytosis, resolved. 3. Chronic back pain. Continues to be a problem. 4. Anxiety, depression improving. PLAN: Hopefully patient can be discharged home in the next 1-2 days. She currently is on vancomycin. We will discuss with Dr. Dye if clindamycin would be an acceptable option given her allergies to doxycycline and sulfa. Further orders as needed. cc: Clay Aguilar MD
[2017-05-12] MEDS: DIFLUCAN PO SCH (09:08)
[2017-05-12] MEDS: NICODERM PATCH TD SCH (09:09)
[2017-05-12] MEDS ORDERED: POTASSIUM CHLORIDE 20 MEQ/SWI 20 MEQ/100 ML IVPB IV SCH (10:00)
[2017-05-12] MEDS ORDERED: KLOR-CON PO ONE (11:29)
--- NOTE | 2017-05-12 20:04 | PROGRESS NOTE ---
DATE: 05/12/2017 SUBJECTIVE: The patient has no focal complaints. OBJECTIVE: Vital Signs: Blood pressure is 137/65, heart rate 70, respiratory rate 16, temperature 97.7 degrees, 97% on room air. Cardiovascular: Regular rate and rhythm. Pulmonary: Bilateral breath sounds. Clear to auscultation. Gastrointestinal: Soft, nontender, nondistended. Bowel sounds are positive. PROBLEM LIST: MRSA abscess and cellulitis. Clinically she has improved drastically on vancomycin. Unfortunately she is allergic to doxycycline and sulfa so really we are only left with IV options. Also she came in on clindamycin having failed therapy for about 24 hours. I think we discussed the treatment options with her, namely clindamycin again, home IV therapy with vancomycin or outpatient IV therapy with and I am going to go ahead and progress with a PICC line and home IV therapy. I will discuss the case with Dr. Dye tomorrow. I do not think he necessarily has to see her as an inpatient if he can assume care as an outpatient. We will follow. cc: Madhu Walker MD
[2017-05-12 20:18] LABS: INR 0.84 (0.86-1.15); PROTIME 12.2 Seconds (12.1-15.5)
[2017-05-12] MEDS: XANAX PO PRN (21:37)
[2017-05-13] MEDS: VANCOMYCIN 1 GM/NS 1 GM/250 ML IVPB IV SCH (03:45)
[2017-05-13] MEDS: PRILOSEC PO SCH (06:43)
[2017-05-13] MEDS: PERCOCET-5 PO PRN ×5 (06:43→22:00)
[2017-05-13] MEDS: DIFLUCAN PO SCH (09:26)
[2017-05-13] MEDS: NICODERM PATCH TD SCH (09:26)
[2017-05-13] MEDS: XANAX PO PRN ×2 (11:09→22:18)
[2017-05-14] MEDS: PRILOSEC PO SCH (06:12)
[2017-05-14] MEDS: DIFLUCAN PO SCH (08:19)
[2017-05-14] MEDS: NICODERM PATCH TD SCH (08:20)
[2017-05-14] MEDS: PERCOCET-5 PO PRN ×3 (08:49→17:17)
[2017-05-14 11:02] LABS: AGAP 12; BUN 10 mg/dL (8-22); CALCIUM 9.4 mg/dL (8.8-10.2); CHLORIDE 102 mmol/L (98-107); COSMO 274; POTASSIUM 4.6 mmol/L (3.5-5.1); SODIUM 137 mmol/L (136-145); TCO2 24 mmol/L (25-35)
[2017-05-14] MEDS ORDERED: NS 250 ML ONE (11:27)
[2017-05-14] MEDS: XANAX PO PRN (11:45)
--- NOTE | 2017-05-14 13:16 | Diag Imaging Result Doc PS360 ---
EXAM: CHEST-PORTABLE HISTORY: PICC PLACEMENT TECHNIQUE: AP portable erect chest at 1309 COMMENT: There is a PICC line on the right with its tip just above the right atrium. Considering differences in technique there has been no significant change since 09/02/2016 IMPRESSION: Stable chest. Electronically signed by Constantin Centeno 05/14/2017 1:14 PM
[2017-05-14] MEDS ORDERED: SODIUM CHLORIDE 0.9% IV PRN (13:20)
[2017-05-14] MEDS ORDERED: NEOSPORIN OINTMENT PACKET TOP SCH (13:30)
[2017-05-14 13:52] VITALS: BP 102/62
[2017-05-14] MEDS ORDERED: VANCOMYCIN 1,600 MG in NS 250 ML IV ONE (15:30)
--- NOTE | 2017-05-14 18:53 | DISCHARGE SUMMARY ---
ADMISSION DATE: 05/04/2017 DISCHARGE DATE: 05/14/2017 DISCHARGE DIAGNOSES: 1. Pelvic cellulitis and abscess positive for Methicillin-resistant Staphylococcus aureus. 2. Dehydration. 3. Paronychia of her hands. PROCEDURES: None. CONSULTATIONS: Mariya Browne MD. HOSPITAL COURSE: Briefly, this is a 46-year-old female. She works in [employer], in [facility] I think in the halfway. She had developed a left groin abscess and was seen in the ER, had it drained at the bedside and packed. Cultures did end up growing out MRSA. She had been discharged on clindamycin. She did not get the medication filled for at least a day I think. The pharmacy may not have been opened, but she was on clindamycin, she at least received 4 doses. She had worsening pain, erythema, lymphangitic spread and fever so she came in for evaluation. A CT scan did not show any evidence of a deep abscess. She was placed empirically on vancomycin and Zosyn. She slowly clinically improved. I think Dr. Browne was consulted on the . The wound was probed and he did not feel any other further surgery was required. Packing and wound care would be sufficient along with antibiotics. She slowly clinically improved. Her initial white count was 13 but by the next day it had dropped down. Micro again just from the culture showed Staph aureus which was sensitive to clindamycin, gentamicin, tetracycline, Bactrim and vancomycin with an WILBUR of 1 on vancomycin. Clinically she was felt stable for discharge on the , however, the patient had failed clindamycin and she is allergic to doxycycline and sulfa, so we had no other options besides IV antibiotics. I discussed the case briefly with Dr. Dye and he recommended another 2 weeks of IV vancomycin. She had a PICC line placed on the and was discharged with home IV for antibiotic therapy. DISCHARGE MEDICATIONS: 1. [place] p.r.n. pain. 2. Zofran and then vancomycin per Dr. Dye' orders. Vancomycin I think was 1 g q.12h for another 2 weeks. 3. She will need to follow up with Dr. Dye in 2 weeks. 4. Follow up with Dr. Browne in 1 week. 5. We will monitor otherwise. DISCHARGE TIME: 32 minutes. cc: Madhu Walker MD
[2017-05-15] MEDS ORDERED: VANCOMYCIN 1 GM/NS 1 GM/250 ML IVPB IV SCH (03:30)
== END 2017-05-14 18:29 | disposition home health service (06) ==
LOC: P.ED 11:24 → P.MEDSURG 11:25 → SUATTDRO 11:25
PROVIDERS: ATTEND Internal Medicine

== ENCOUNTER 2019-01-23 15:38 | Inpatient (IN) ==
[2019-01-23] MEDS ORDERED: ZOFRAN IV ONE (15:55)
[2019-01-23] MEDS ORDERED: NS 1,000 ML IV ONE (15:55)
--- NOTE | 2019-01-23 16:02 | PROVIDER DOCUMENTATION ---
HPI-General Adult - General Chief Complaint: N/V/D Stated Complaint: VOMITING/MUSCLE CRAMPS/FEVER Time Seen by Provider: 01/23/19 15:55 Source: patient Allergies/Adverse Reactions: Patient Allergies Allergy/AdvReac Type Severity Reaction Status Date / Time doxycycline Allergy Severe ANAPHYLAXIS Verified 06/11/18 13:09 orange juice Allergy Intermediate RASH Verified 06/11/18 13:09 Sulfa (Sulfonamide Allergy Intermediate Unknown Verified 06/11/18 13:09 Antibiotics) [Sulfa(Sulfonamide Antibiotics)] tramadol Allergy Intermediate RASH Verified 06/11/18 13:09 ibuprofen Allergy NAUSEA/VOMI Verified 06/11/18 13:09 TING tramadol HCl * [From Ultram] AdvReac Mild NAUSEA/VOMITING; Verified 06/11/18 13:09 STEPHENS Home Medications: Home Medication List Medication Instructions Recorded Confirmed Last Taken Type Hydrocodone/APAP 7.5 mg/325 mg 1 each PO Q6H PRN PRN #25 tablet 05/14/17 Unknown Rx [[place]on-7.5] Ondansetron Odt [Zofran 4 mg Odt] 4 mg PO Q6H PRN PRN #25 tablet 05/14/17 06/11/18 Unknown Rx Fluconazole [Diflucan] 150 mg PO DAILY #1 tab 06/04/18 06/11/18 Unknown Rx Dicyclomine [Bentyl] 10 mg PO AC + HS #20 cap 06/11/18 Unknown Rx Levofloxacin 500 mg PO DAILY 06/11/18 06/11/18 06/11/18 08:00 History Levofloxacin [Levaquin] 750 mg PO DAILY #10 tab 06/11/18 Unknown Rx Promethazine [Phenergan] 25 mg PO Q6H PRN PRN #20 tab 06/11/18 Unknown Rx Ibuprofen 800 mg PO TID PRN #30 tab 01/06/19 Unknown Rx - History of Present Illness -Gen Adult Nature of Presenting Problems: Pt. is 48 yof that presents with c/o abd pain with N/V that began yesterday. Pt. reports now she is having muscle cramps. Pt. reports taking zofran and imodium with no relief. She reports her last normal BM was Thursday. Location of Pain/Injury: reports: abdomen. denies: none, head, face, mouth, neck, chest, upper extremity, hand(s), back, pelvis, genitalia, lower extremity, feet, upper body, lower body, generalized, other Pain Radiation: reports: no radiation. denies: arm(s), back, buttocks, chest, epigastric, feet, groin, jaw, flank (L), legs (lower), LLQ, LUQ, neck, periumbilical, flank (R), RLQ, RUQ, shoulder(s), scapula, scrotal, sternal notch, suprapubic, legs (upper), urethral, vaginal, other Quality of Pain: reports: cramping. denies: burning, pressure, stabbing, tightness Severity: reports: moderate. denies: mild, severe Onset/Duration: reports: abrupt, 24 hours ago Timing: reports: still present. denies: improving, gone now, constant, getting worse Context/Activities at Onset: reports: none. denies: light activity, moderate activity, vigorous activity, recent emotional stress, recent physical stress, recent trauma history, possible bad food, cold exposure, eating, out of country travel, rest, sleep, sexual activity, other Modifying Factors: improves with: nothing Associated Symptoms: reports: nausea, vomiting, weakness. denies: denies symptoms, anxiety, arm pain, back/neck pain, chest pain, constipation, cough, diaphoresis, diarrhea, dizziness, EENT symptoms, fatigue, fever/chills, piedad tourinary problems, headaches, heartburn, joint pain, loss of appetite, malaise, muscle aches, sinus congestion/drainage, rash, seizure, shortness of breath, sensory/motor loss, pain with inspiration, swelling/mass in abdomen, syncope, trouble walking, other Similar Symptoms Previously?: Yes Recently seen or treated by another doctor?: No Review of Systems - Adult - REVIEW OF SYSTEMS - ADULT Constitutional: reports: no symptoms reported Eyes: reports: no symptoms reported Ears, Nose, Mouth & Throat: reports: no symptoms reported Cardiovascular: reports: no symptoms reported Respiratory: reports: no symptoms reported Gastrointestinal: reports: see HPI, abdominal pain, nausea, vomiting. denies: constipation, diarrhea, difficulty swallowing Genitourinary: reports: no symptoms reported Musculoskeletal: reports: no symptoms reported Integumentary: reports: no symptoms reported Neurological: reports: no symptoms reported Psychiatric: reports: no symptoms reported Past History - Adult - PAST MEDICAL HISTORY-ADULT Review of Records: reports: Old Records Reviewed, Nursing Assessment Review, Medications Reviewed, Social history reviewed & non-contributory. Major Childhood Illnesses: reports: denies history Cardiovascular: reports: denies history Respiratory: reports: denies history Gastrointestinal: reports: IBS Obstetrical/Gynecological: reports: endometriosis, other (uterine prolapse) Genitourinary: reports: denies history Musculoskeletal: reports: arthritis, chronic pain, fibromyalgia, intervertebral disc disease Neurological: reports: headaches/migraines Endocrine/Immune: reports: denies history Other Conditions: reports: denies history - PRIOR SURGERIES/PROCEDURES Surgical/Procedure History: reports: colonoscopy, hysterectomy, tonsillectomy, orthopedic (extremity) - IMMUNIZATION STATUS Childhood Immunizations: See Nurse Assessment Flu Vaccine: See Nurse Assessment - FAMILY HISTORY Family History: reviewed, not pertinent - SOCIAL HISTORY Smoking: cigarettes, greater than 1 pack/day Provider spent 3-5 mins advising pt. on dangers of tobacco.: Discussed manners to quit use, and f/u contacts for add'l counseling. Physical Exam-General - PHYSICAL EXAM-ADULT Initial Vital Signs Reviewed: Yes - CONSTITUTIONAL General Appearance: alert, mild distress, thin. negative: anxious, slow to respond, obtunded, combative - EYES Eyes: PERRL/EOMI, pink conjunctivae. negative: conjuctival exudate, sclera injected, scleral icterus - HEAD, EARS, NOSE, MOUTH & THROAT HENMT: normocephalic/atraumatic, moist mucous membranes. negative: angioedema, frontal tenderness, maxillary tenderness - NECK Neck: non-tender, full range of motion, supple, normal inspection. negative: lymphadenopathy, trachial deviation, thyromegaly - RESPIRATORY Respiratory: lungs clear, normal breath sounds. negative: crackles, rales, rhonchi, stridor, wheezing - CARDIOVASCULAR Cardiovascular: regular rate, rhythm, no edema, no JVD, tachycardia. negative: gallop/S4, extra beats, friction rub - GASTROINTESTINAL (ABDOMEN) Abdominal Exam: soft, abnormal bowel sounds (hypoactive), tenderness. negative: distended, guarding, rigid, rebound, hernia, mass - LYMPHATIC Lymphatic: no adenopathy. negative: axilla node tender, cervical node tenderness - MUSCULOSKELETAL Back Exam: normal inspection, no CVA tenderness, no vertebral tenderness. negative: ecchymosis, muscle spasm, swelling Extremity: normal range of motion, non-tender, normal gait, normal inspection. negative: deformity, erythema, inflammation, swelling, tenderness Peripheral Pulses: radial (R): 2+, radial (L): 2+ - SKIN Integumentary: normal color, normal turgor, warm/dry. negative: cyanosis, erythema, jaundice, pallor, swelling, tenderness - NEUROLOGIC Neurologic: grossly normal, no motor/sensory deficits. negative: aphasia, motor weakness, sensory deficit - PSYCHIATRIC Psych/Mental Status: normal mood/affect, normal thought content, normal thought process, oriented x 3. negative: anxious, paranoid, tearful Progress - PLAN OF CARE/RESULTS Progress/Plan/Lab Results: Vital Signs - 8 hr 01/23/19 15:46 Temperature 97.9 F Pulse Rate 114 H Respiratory Rate 20 Blood Pressure 118/82 O2 Sat by Pulse Oximetry 96 Orders Category Date Time Status ED: Urine Bedside ORDERED Care 01/23/19 15:55 Active Saline Loc NOW Care 01/23/19 15:55 Active FLAT/UPRIGHT ABD/1 VIEW CHEST [RAD] Stat Exams 01/23/19 15:58 Ordered CBC WITH ELECTRONIC DIFF [HEME] Stat Lab 01/23/19 15:55 Uncollected COMPREHENSIVE METABOLIC PANEL [CHEM] Stat Lab 01/23/19 15:55 Uncollected LIPASE [CHEM] Stat Lab 01/23/19 15:55 Uncollected URINALYSIS W/POSS RFLX CULT [URINALYSIS] Stat Lab 01/23/19 15:55 Uncollected 0.9% Sodium Chloride Inj [Ns] 1,000 ml Med 01/23/19 15:55 Active IV 999 mls/hr Ondansetron [Zofran] Med 01/23/19 15:55 Discontinued 4 mg IV NOW ONE Laboratory Tests 01/23/19 01/23/19 01/23/19 16:04 16:04 16:04 WBC 21.38 H RBC 6.33 H Hgb 19.0 H Hct 56.4 H MCV 89.1 MCH 30.0 MCHC 33.7 RDW Std Deviation 13.4 Plt Count 390 MPV 10.2 Immature Gran % (Auto) 0.3 Neut % (Auto) 84.3 H Lymph % (Auto) 8.6 L [place] % (Auto) 6.7 Eos % (Auto) 0.0 Baso % (Auto) 0.1 Immature Gran # (Auto) 0.06 H Neut # (Auto) 18.02 H Lymph # (Auto) 1.84 Nicol[place] # (Auto) 1.43 H Eos # (Auto) 0.00 Baso # (Auto) 0.03 PT INR PTT (Actin FS) Sodium 142 Potassium 3.7 Chloride 99 Carbon Dioxide 22 L Anion Gap 21 BUN 18 Creatinine 2.1 H Estimated GFR/1.73 m2 25 BUN/Creatinine Ratio 9 Glucose 120 H Calculated Osmolality 286 Calcium 11.1 H Total Bilirubin 0.52 AST 18 ALT 14 Alkaline Phosphatase 83 Creatine Kinase 468 H Creatine Kinase Index 1.0 CK-MB (CK-2) 4.75 Troponin T Total Protein 9.7 H Albumin 5.2 H Globulin 4.5 Albumin/Globulin Ratio 1.2 Lipase 35 Plasma Lactate Urine Source Urine Color Urine Turbidity Urine pH Ur Specific [place] Urine Protein Ur Glucose (Stick) Ur Ketones (Stick) Urine Blood Urine Nitrite Urine Bilirubin Urobilinogen Dipstick Urine Leukocytes Urine WBC (Auto) Urine RBC (Auto) U Epithel Cells (Auto) Urine Bacteria (Auto) Urine Crystals Small Round Cells Urine Casts Urine Yeast-like Cells 01/23/19 01/23/19 01/23/19 16:04 16:04 16:57 WBC RBC Hgb Hct MCV MCH MCHC RDW Std Deviation Plt Count MPV Immature Gran % (Auto) Neut % (Auto) Lymph % (Auto) Nicol[place] % (Auto) Eos % (Auto) Baso % (Auto) Immature Gran # (Auto) Neut # (Auto) Lymph # (Auto) Nicol[place] # (Auto) Eos # (Auto) Baso # (Auto) PT 13.3 INR 0.94 PTT (Actin FS) 27.9 Sodium Potassium Chloride Carbon Dioxide Anion Gap BUN Creatinine Estimated GFR/1.73 m2 BUN/Creatinine Ratio Glucose Calculated Osmolality Calcium Total Bilirubin AST ALT Alkaline Phosphatase Creatine Kinase Creatine Kinase Index CK-MB (CK-2) Troponin T < 0.010 Total Protein Albumin Globulin Albumin/Globulin Ratio Lipase Plasma Lactate 1.4 Urine Source Urine Color Urine Turbidity Urine pH Ur Specific [place] Urine Protein Ur Glucose (Stick) Ur Ketones (Stick) Urine Blood Urine Nitrite Urine Bilirubin Urobilinogen Dipstick Urine Leukocytes Urine WBC (Auto) Urine RBC (Auto) U Epithel Cells (Auto) Urine Bacteria (Auto) Urine Crystals Small Round Cells Urine Casts Urine Yeast-like Cells 01/23/19 18:34 WBC RBC Hgb Hct MCV MCH MCHC RDW Std Deviation Plt Count MPV Immature Gran % (Auto) Neut % (Auto) Lymph % (Auto) Nicol[place] % (Auto) Eos % (Auto) Baso % (Auto) Immature Gran # (Auto) Neut # (Auto) Lymph # (Auto) [place] # (Auto) Eos # (Auto) Baso # (Auto) PT INR PTT (Actin FS) Sodium Potassium Chloride Carbon Dioxide Anion Gap BUN Creatinine Estimated GFR/1.73 m2 BUN/Creatinine Ratio Glucose Calculated Osmolality Calcium Total Bilirubin AST ALT Alkaline Phosphatase Creatine Kinase Creatine Kinase Index CK-MB (CK-2) Troponin T Total Protein Albumin Globulin Albumin/Globulin Ratio Lipase Plasma Lactate Urine Source CATH Urine Color YELLOW Urine Turbidity HAZY Urine pH 5.5 Ur Specific [place] 1.022 Urine Protein 100 A Ur Glucose (Stick) NEGATIVE Ur Ketones (Stick) 40 A Urine Blood MODERATE A Urine Nitrite NEGATIVE Urine Bilirubin SMALL A Urobilinogen Dipstick 3 A Urine Leukocytes NEGATIVE Urine WBC (Auto) <10 Urine RBC (Auto) <10 U Epithel Cells (Auto) >10 A Urine Bacteria (Auto) NEGATIVE Urine Crystals NONE SEEN Small Round Cells NONE SEEN Urine Casts NONE SEEN Urine Yeast-like Cells NONE SEEN Result Diagrams: 01/23/19 16:04 01/23/19 16:04 - XRAY 1 XRAY Study: Chest, Abdomen ([facility] [address] [facility], [address], [place] [address] Department of Imaging Patient: LYLE CINTRON Date: 01/23/19MR#: [id number] : 1970ADM Status: REG [facility]#: [id number] Age/Sex: 48/FRoom/Bed: Loc: ED Ordering Physician: No Rg Family Physician: Clay Aguilar MD Reason for Procedure: abd pain Signed EXAM: FLAT/UPRIGHT ABD/1 VIEW CHEST HISTORY: abd pain TECHNIQUE: Flat and upright with chest, three views COMPARISON: 05/14/2017 FINDINGS: The lungs are well expanded. No pneumonia. No cardiomegaly. No free air beneath the diaphragm. No bowel obstruction. No organomegaly. No foreign body. There are several pelvic phleboliths. Mild scoliosis. IMPRESSION: No acute abnormality. Electronically signed by Jeb Gaona 01/23/2019 4:39 PM 01/23/[id number] Interpreting Physician: Jeb Gaona MD Dictated Date/Time: 01/23/19 1634 cc: No Rg; Clay Aguilar MD) XRAY Interpretation: See note - CT/MRI 1 CT Study: Renal Stone ([facility] [address] [facility], [address], [place] [address] Department of Imaging Patient: LYLE CINTRON Date: 01/23/19MR#: [id number] : 1970ADM Status: [facility] ERAcct#: [id number] Age/Sex: 48/FRoom/Bed: Loc: ED Ordering Physician: No Rg Family Physician: Clay Aguilar MD Reason for Procedure: abd pain Signed EXAM: CT ABDOMEN/PELVIS W/O CONTRAST HISTORY: abd pain TECHNIQUE: CT abdomen and pelvis without contrast COMPARISON: 06/11/2018 FINDINGS: The gallbladder is contracted. No calcified stones. No focal hepatic abnormality identified on this noncontrasted exam. Normal spleen, pancreas, and adrenal glands. No perinephric inflammation. Several tiny nonobstructing left renal stones. No hydronephrosis and no ureteral stones. No aortic aneurysm. No bowel obstruction. Normal appendix. No abscess. No ascites. The urinary bladder is not distended. The uterus has been removed. Neither ovary is enlarged. Mild scoliosis. IMPRESSION: 1.Nonobstructing left renal stones 2.Hysterectomy This exam was performed using automated exposure control, adjustment of mA or kV according to patient size, and/or use of iterative reconstruction technique. Electronically signed by Jeb Gaona 01/23/2019 5:54 PM 01/23/19 175 Interpreting Physician: Jeb Gaona MD Dictated Date/Time: 01/23/19 175 cc: No Rg; Clay Aguilar MD) CT Results: See note - CONSULTS/PCP/HOSPITALIST Notification #1 *Consult/PCP/Hospitalist*: Dr. Ochoa Time Discussed: 19:16 Reason/Comments: Admission Consult Disposition: Will see in ED, Admit Departure - Departure Date of Disposition Decision: 01/23/19 Time of Disposition Decision: 18:16 DIAGNOSIS: Acute renal insufficiency, Dehydration Leukocytosis Qualifiers: Leukocytosis type: unspecified Qualified Code(s): D72.829 - Elevated white blood cell count, unspecified Disposition: ADMITTED INPATIENT 09 Certified Medical Emergency: Emergent Condition: Stable Referrals and Follow-Ups: Clay Aguilar MD [Primary Care Provider] - - Critical Care Note This patient required my direct & personal management of CC.: No Attestation - Physician/ SCOOTER Attestation Patient care was provided by Advanced Practice Provider:: Yes Advanced Practice Provider:: No Rg Advanced Practice Provider documentation review:: The Mid-level provider documentation, treatment plan and medical decision making was reviewed by the physician who agrees with all treatment and medical decision making by the MLP. The physician spent face to face time with patient:: No Advanced Practice Provider documentation review:: Supervising physician onsite and consulted in the evaluation and care of this patient. The physician did not have a face to face encounter with the patient.
[2019-01-23 16:17] LABS: BASO# 0.03 X1000 (0.0-0.2); BASO% 0.1 % (0.0-0.8); HEMATOCRIT 56.4 % (37.0-47.0); IMM GRAN# 0.06 X1000 (0.0-0.04); IMM GRAN% 0.3 % (0.0-0.5); LYMPH# 1.84 X1000 (1.2-3.4); LYMPH% 8.6 % (20.5-51.1); MCHC 33.7 g/dL (33-37); MCV 89.1 FL (81-99); MONO# 1.43 X1000 (0.11-0.59); MONO% 6.7 % (1.7-9.3); MPV 10.2 FL (7.4-10.4); NEUT# 18.02 X1000 (1.4-6.5); NEUT% 84.3 % (42.2-75.2); PLT 390 X1000 (130-400); RBC 6.33 XMIL (4.2-5.4); RDW 13.4 % (11.5-14.5); WBC 21.38 X1000 (4.8-10.8)
[2019-01-23 16:32] LABS: ALB/GLOB RATIO 1.2; ALBUMIN 5.2 g/dL (3.5-5.0); CALCIUM 11.1 mg/dL (8.8-10.2); CREATININE 2.1 mg/dL (0.5-0.9); POTASSIUM 3.7 mmol/L (3.5-5.1); TOTAL BILIRUBIN 0.52 mg/dL (0.20-1.00); TOTAL PROTEIN 9.7 g/dL (6.3-8.3)
--- NOTE | 2019-01-23 16:41 | Diag Imaging Result Doc PS360 ---
EXAM: FLAT/UPRIGHT ABD/1 VIEW CHEST HISTORY: abd pain TECHNIQUE: Flat and upright with chest, three views COMPARISON: 05/14/2017 FINDINGS: The lungs are well expanded. No pneumonia. No cardiomegaly. No free air beneath the diaphragm. No bowel obstruction. No organomegaly. No foreign body. There are several pelvic phleboliths. Mild scoliosis. IMPRESSION: No acute abnormality. Electronically signed by Jbe Gaona 01/23/2019 4:39 PM
[2019-01-23] MEDS ORDERED: REGLAN IV ONE (16:51)
--- NOTE | 2019-01-23 17:57 | Diag Imaging Result Doc PS360 ---
EXAM: CT ABDOMEN/PELVIS W/O CONTRAST HISTORY: abd pain TECHNIQUE: CT abdomen and pelvis without contrast COMPARISON: 06/11/2018 FINDINGS: The gallbladder is contracted. No calcified stones. No focal hepatic abnormality identified on this noncontrasted exam. Normal spleen, pancreas, and adrenal glands. No perinephric inflammation. Several tiny nonobstructing left renal stones. No hydronephrosis and no ureteral stones. No aortic aneurysm. No bowel obstruction. Normal appendix. No abscess. No ascites. The urinary bladder is not distended. The uterus has been removed. Neither ovary is enlarged. Mild scoliosis. IMPRESSION: 1.Nonobstructing left renal stones 2.Hysterectomy This exam was performed using automated exposure control, adjustment of mA or kV according to patient size, and/or use of iterative reconstruction technique. Electronically signed by Jeb Gaona 01/23/2019 5:54 PM
[2019-01-23 18:06] LABS: INR 0.94; PROTIME 13.3 Seconds (11.0-16.0); PTT 27.9 Seconds (22.3-41.8)
[2019-01-23 18:31] LABS: CK-MB 4.75 ng/mL (0.0-5.0)
[2019-01-23 18:41] LABS: URINE SOURCE CATH
[2019-01-23 18:45] LABS: BILIRUBIN URINE SMALL (NEGATIVE); BLOOD URINE MODERATE (NEGATIVE); COLOR YELLOW; GLUCOSE URINE NEGATIVE (NEGATIVE); KETONE URINE 40 mg/dL (NEGATIVE); LEUKOCYTES URINE NEGATIVE (NEGATIVE); NITRITE URINE NEGATIVE (NEGATIVE); PH URINE 5.5; PROTEIN URINE 100 mg/dL (NEGATIVE); SP GRAVITY URINE 1.022; TURBIDITY URINE HAZY (CLEAR); UROBILINOGEN URINE 3 mg/dL (NORMAL)
[2019-01-23 18:54] LABS: UR EPITHELIAL CELLS >10 /HPF (<10); URINE BACTERIA NEGATIVE /HPF; URINE RBC <10 /HPF (<10); URINE WBC <10 /HPF (<10)
[2019-01-23 19:06] LABS: URINE CASTS NONE SEEN; URINE CRYSTALS NONE SEEN; URINE SMALL ROUND CELLS NONE SEEN; URINE YEAST NONE SEEN
[2019-01-23] MEDS ORDERED: ROCEPHIN 1 GM in NS 50 ML IV ONE (19:12)
--- NOTE | 2019-01-23 20:30 | HISTORY AND PHYSICAL ---
CHIEF COMPLAINT: Nausea, vomiting, diarrhea. HISTORY OF PRESENT ILLNESS: A 48-year-old female with a past medical history of chronic back pain, migraines, anxiety, and depression presented to the emergency department with chief complaint of nausea, vomiting and diarrhea that started yesterday around 4:00 p.m. As per the patient, it has been quite severe. She has been having nausea and vomiting at least every hour as well as diarrhea. At the beginning was brown and watery, but now is yellowish and watery as well. She did not see any blood in the stool or the vomiting. She stopped eating actually 2 days ago. Her last meal was on last Thursday at noon. Then during at night she was not feeling really well, and she did not eat supper. She was not complaining of nausea and vomiting. All this has been associated with chills and subjective fever. She also has been complaining of some cough that started last , 3 days ago, with no phlegm so far. In the emergency department, she was found to have a WBC of 21,000, hemoglobin 19, Creatinine level of 2.1, CK level of 468, lactate 1.4. Ketones in the urine but no signs of infection. This patient already received 2 L of fluids in the emergency department and a dose of ceftriaxone. Her abdomen is tender, generalized. CT scan did not show any acute abnormality, and abdominal x-ray did not show any abnormality either. Given her current presentation with leukocytosis, chills, nausea, vomiting, and diarrhea, I will start this patient on antibiotics, levofloxacin, and also I will start with Flagyl. I will continue with IV fluids, nausea medication, telemetry, and we will monitor the lab work on a daily basis. She denies headache, shortness of breath, chest pain, or constipation. REVIEW OF SYSTEMS: All the 14 points of review of systems were reviewed. All of them negative except as per HPI. PAST MEDICAL HISTORY: Chronic back pain, anxiety, depression, history of endometriosis status post hysterectomy. PAST SURGICAL HISTORY: Tonsillectomy, hysterectomy, and left oophorectomy. FAMILY HISTORY: Mother and aunt with breast cancer. Father with diabetes and hypertension. SOCIAL HISTORY: She smokes 1 to 2 packs a day of cigarettes, and she has been smoking for about 30 years. No drugs. Occasional alcohol use. ALLERGIES: Doxycycline, apparently sulfa medication, tramadol, and ibuprofen, and is listed on the computer, orange[employer]agster. HOME MEDICATIONS: None. PHYSICAL EXAMINATION: VITAL SIGNS: Temperature 97.9 degrees, pulse 93, respiratory rate 18, blood pressure 121/74, oxygen saturation 97% on room air. Upon admission, the patient was tachycardic at 114. LABORATORY: WBC 21.3, hemoglobin 19, hematocrit 56.4, platelets 390,000. Sodium 142, potassium 3.7, chloride 99, bicarbonate 22, BUN 18, creatinine 2.1, glucose 120, calcium 11.1. CK 468. Albumin 5.2. ASSESSMENT AND PLAN: 1. Possible sepsis. This patient meets criteria for sepsis with leukocytosis, tachycardia upon admission, and possible colitis. She has been having chills as well, but she did not measure the fever at home. In the emergency department, she was not having fever. I will ask for cultures. I will put this patient on levofloxacin and Flagyl. I will continue with IV fluids. I will monitor this patient closely. 2. Nausea, vomiting, and diarrhea. I will ask for WBC in the stool, Clostridium difficile, and culture. I will continue with IV fluids and nausea medication. This patient has been placed n.p.o., but I will allow ice chips. 3. Acute kidney injury, likely secondary to severe dehydration. Continue with IV fluids. 4. Severe dehydration as above. Continue with fluid resuscitation. 5. Rhabdomyolysis, likely secondary to severe dehydration as well, is mild. We will continue checking the CK level. 6. Chronic back pain. We will just monitor this patient. She is not taking any medication at home. Apparently, she was taking Flexeril, but she stopped taking it a few days ago. As per the patient, she has an appointment with spine surgery in the near future. 7. Further recommendations pending hospital course. cc: Marshall Avalos MD
[2019-01-23] MEDS: NS 1,000 ML IV SCH (20:33)
[2019-01-23] MEDS: LEVAQUIN 250 MG/D5W 250 MG/50 ML IVPB IV SCH (23:06)
[2019-01-23] MEDS: FLAGYL 500 MG/NS 500 MG/100 ML IVPB IV SCH (23:06)
[2019-01-23] MEDS: PROTONIX IV SCH (23:07)
[2019-01-23] MEDS: HEPARIN SUBQ SCH (23:07)
[2019-01-24 00:05] LABS: URINE SOURCE CLEAN CATCH
[2019-01-24] MEDS: TYLENOL PO PRN ×3 (00:16→20:30)
[2019-01-24] MEDS: ZOFRAN IV PRN ×5 (00:16→21:41)
[2019-01-24 00:21] LABS: BILIRUBIN URINE NEGATIVE (NEGATIVE); BLOOD URINE SMALL (NEGATIVE); COLOR YELLOW; GLUCOSE URINE NEGATIVE (NEGATIVE); KETONE URINE 60 mg/dL (NEGATIVE); LEUKOCYTES URINE NEGATIVE (NEGATIVE); NITRITE URINE NEGATIVE (NEGATIVE); PROTEIN URINE 30 mg/dL (NEGATIVE); SP GRAVITY URINE 1.022; TURBIDITY URINE CLEAR (CLEAR); UROBILINOGEN URINE NORMAL (NORMAL)
[2019-01-24 00:22] LABS: UR EPITHELIAL CELLS <10 /HPF (<10); URINE BACTERIA NEGATIVE /HPF; URINE RBC <10 /HPF (<10); URINE WBC <10 /HPF (<10)
[2019-01-24] MEDS: FLAGYL 500 MG/NS 500 MG/100 ML IVPB IV SCH ×4 (01:06→20:20)
[2019-01-24] MEDS: NS 1,000 ML IV SCH ×3 (04:31→20:33)
[2019-01-24 08:21] LABS: BASO# 0.02 X1000 (0.0-0.2); BASO% 0.2 % (0.0-0.8); EOS# 0.02 X1000 (0.0-0.7); EOS% 0.2 % (0.0-10.0); HEMATOCRIT 44.3 % (37.0-47.0); HEMOGLOBIN 15.2 g/dL (12.0-16.0); IMM GRAN# 0.03 X1000 (0.0-0.04); IMM GRAN% 0.2 % (0.0-0.5); LYMPH# 1.88 X1000 (1.2-3.4); LYMPH% 14.4 % (20.5-51.1); MCH 31.2 PG (27-31); MCHC 34.3 g/dL (33-37); MONO# 1.19 X1000 (0.11-0.59); MONO% 9.1 % (1.7-9.3); MPV 10.4 FL (7.4-10.4); NEUT# 9.91 X1000 (1.4-6.5); NEUT% 75.9 % (42.2-75.2); PLT 276 X1000 (130-400); RBC 4.87 XMIL (4.2-5.4); RDW 13.1 % (11.5-14.5); WBC 13.05 X1000 (4.8-10.8)
[2019-01-24 08:36] LABS: ALB/GLOB RATIO 1.5; ALBUMIN 3.8 g/dL (3.5-5.0); CALCIUM 8.7 mg/dL (8.8-10.2); MAGNESIUM 1.9 mg/dL (1.5-2.7); POTASSIUM 3.7 mmol/L (3.5-5.1); TOTAL BILIRUBIN 0.56 mg/dL (0.20-1.00); TOTAL PROTEIN 6.4 g/dL (6.3-8.3)
[2019-01-24] MEDS: PROTONIX IV SCH ×2 (08:39→20:20)
[2019-01-24] MEDS: SODIUM CHLORIDE 0.9% INJ SCH ×2 (08:39→20:20)
[2019-01-24] MEDS: HEPARIN SUBQ SCH ×2 (08:39→20:20)
[2019-01-24 09:28] LABS: CK INDEX 1.2 (0.0-2.5); CK-MB 5.67 ng/mL (0.0-5.0)
[2019-01-24] MEDS: TESSALON PO PRN (15:48)
--- NOTE | 2019-01-24 17:27 | PROGRESS NOTE ---
DATE: 01/24/2019 SUBJECTIVE: Ms. Oakes was admitted yesterday. She reports that she developed a sudden onset of nausea, vomiting, and diarrhea. It really just came on all of a sudden. I think that was on Thursday afternoon. A lot of nausea, vomiting, and then diarrhea. PAST MEDICAL HISTORY: Back pain, migraines, anxiety, depression. She has not been able to keep liquids or food down and looked volume depleted when she came in. So, concerned about possible sepsis. She had leukocytosis and tachycardia on admission. There was question of possible colitis. Her abdominal and pelvic CT scan showed nonobstructing left renal stones and hysterectomy, but everything was clear. PHYSICAL EXAMINATION: General: She is feeling much better today, awake, alert, and oriented. Vital Signs: Temperature 98.9 degrees, pulse 75, respirations 16, blood pressure 117/62. HEENT: Pupils are equal. Neck: No distended neck veins. Lungs: Clear in all lung hawkins. Cardiovascular: Regular rhythm and rate without murmur or S3. Abdomen: Soft, nondistended, nontender. No organomegaly. No pedal edema. No sign of either skin rash or oral or nasal mucosa rash. LABORATORY DATA: White count down to 13,050. Yesterday, it was 21,000, hematocrit 44, normal differential, platelet count 276,000. Sodium 140, potassium 3.7, chloride 108, BUN 19, creatinine 1. Creatinine came down from 2.1. ASSESSMENT AND PLAN: 1. Most probably this is a viral gastroenteritis and not a bacterial infection, and she had volume depletion secondary to diarrhea, nausea, and vomiting. 2. Volume depletion. This has improved. Her acute kidney injury appears to be prerenal. Her creatinine is down to 1. She feels much better. 3. Nutrition is good, and no sign of nutritional deficiency. 4. Leukocytosis which I suspect was demargination from stress and throwing up, and this appears to have resolved quickly. We are expecting she is going to continue to improve and can go home tomorrow. We will advance her to a full liquid diet and see how we do. cc: Arcenio Marques MD
[2019-01-24] MEDS ORDERED: VIIBRYD PO SCH (21:00)
[2019-01-24] MEDS: LEVAQUIN 250 MG/D5W 250 MG/50 ML IVPB IV SCH (21:41)
[2019-01-25] MEDS: NS 1,000 ML IV SCH ×3 (00:52→12:21)
[2019-01-25] MEDS: TESSALON PO PRN ×2 (00:57→08:29)
[2019-01-25] MEDS: FLAGYL 500 MG/NS 500 MG/100 ML IVPB IV SCH ×3 (02:55→15:25)
[2019-01-25] MEDS: ZOFRAN IV PRN ×2 (02:56→08:29)
[2019-01-25 07:25] LABS: HEMATOCRIT 43.7 % (37.0-47.0); HEMOGLOBIN 14.8 g/dL (12.0-16.0); MCH 30.8 PG (27-31); MCHC 33.9 g/dL (33-37); MPV 10.1 FL (7.4-10.4); RBC 4.8 XMIL (4.2-5.4); RDW 12.8 % (11.5-14.5); WBC 8.06 X1000 (4.8-10.8)
[2019-01-25 07:53] LABS: AGAP 9; ALB/GLOB RATIO 1.3; ALBUMIN 3.6 g/dL (3.5-5.0); ALKALINE PHOSPHATASE 49 U/L (32-104); BUN 8 mg/dL (8-22); CALCIUM 8.3 mg/dL (8.8-10.2); CHLORIDE 114 mmol/L (98-107); COSMO 282; CREATININE 0.7 mg/dL (0.5-0.9); ESTIMATED GFR > 60; GLUCOSE 102 mg/dL (70-104); GOT 22 U/L (10-30); GPT 16 U/L (10-36); MAGNESIUM 1.9 mg/dL (1.5-2.7); PHOSPHORUS 1.6 mg/dL (2.7-4.5); POTASSIUM 3.6 mmol/L (3.5-5.1); SODIUM 142 mmol/L (136-145); TCO2 19 mmol/L (25-35); TOTAL BILIRUBIN 0.43 mg/dL (0.20-1.00); TOTAL PROTEIN 6.3 g/dL (6.3-8.3)
[2019-01-25] MEDS: HEPARIN SUBQ SCH (08:09)
[2019-01-25] MEDS: PROTONIX IV SCH (08:12)
[2019-01-25] MEDS: SODIUM CHLORIDE 0.9% INJ SCH (08:12)
[2019-01-25] MEDS ORDERED: DIFLUCAN PO SCH (11:15)
[2019-01-25 11:16] VITALS: BP 125/66
[2019-01-25] MEDS ORDERED: POTASSIUM PHOSPHATE 30 MMOL in NS 250 ML IV ONE (11:29)
[2019-01-25] MEDS ORDERED: KLOR-CON PO ONE (14:38)
[2019-01-25] MEDS ORDERED: NEUTRA-PHOS PO ONE (15:17)
--- NOTE | 2019-01-27 18:31 | DISCHARGE SUMMARY ---
ADMISSION DATE: 01/23/2019 DISCHARGE DATE: 01/25/2019 FINAL DISCHARGE DIAGNOSES: 1. Viral gastroenteritis. 2. Hypokalemia. 3. Leukocytosis. 4. Hypophosphatemia. 5. Acute bronchitis IMAGING: CT of the abdomen and pelvis performed on 01/23/2019 that revealed nonobstructing left renal stones. HOSPITAL COURSE: Ms. Oakes is a 48-year-old female with a history of chronic back pain, who presented to the ER with a chief complaint of nausea, vomiting, and diarrhea. On admission, the patient was noted to have a creatinine of 2.1, and she was volume depleted. The patient was admitted to the hospitalist service with the diagnosis of gastroenteritis. Blood cultures were obtained as well as stool studies. The patient was treated with IV antibiotics as well as IV fluids. The patient had a marked improvement in her symptomatology within 48 hours. By the day of discharge, the patient was able to tolerate a solid diet and was no longer having multiple episodes of loose stools, and she was afebrile. Also, her renal function had normalized. The patient was ultimately cleared for discharge home on 01/25/2019. DISCHARGE MEDICATIONS: 1. Lactobacillus 1 tab oral twice a day. 2. Diflucan 100 mg p.o. daily. 3. Omeprazole 20 mg p.o. daily. 4. Augmentin 875/125 one tab oral twice a day. 5. Nasonex 1 spray intranasal daily. 6. Neutra-Phos 1 packet oral twice a day x2 days. 7. Melatonin 1 tablet oral at bedtime. 8. Viibryd 20 mg p.o. at bedtime. DISCHARGE DIET: GI soft diet. ACTIVITY: As tolerated. FOLLOWUP INSTRUCTIONS: The patient has been advised to follow up with Dr. Aguilar in 1 to 2 weeks. The patient has also been notified to follow up with Dr. Castellano if she has any further GI issues. cc: Izzy Tang MD [facility]
== END 2019-01-25 17:04 | disposition home or self-care (01) | DRG 683 ==
LOC: ED 15:38 → SUATTDRO 20:26 → 3N 20:26
PROVIDERS: ATTEND Internal Medicine
CPT/HCPCS: 51701; 74022; 74176; 80053; 81001; 82550; 82553; 83605; 83690; 83735; 84100; 84443; 84484; 85025; 85027; 85610; 85730; 87040; 87045; 87046; 87070; 87205; 87324; 89055; 94761; 96365; 96375; 99285; A9270; C9113; J0696; J1644; J1956; J2405; J2765; J7030; J7050; P9612; S0030; S0164

== ENCOUNTER 2019-08-07 10:14 | Observation (INO) ==
[2019-08-07] MEDS ORDERED: BENADRYL IV ONE (10:29)
[2019-08-07] MEDS ORDERED: REGLAN IV ONE (10:29)
[2019-08-07] MEDS ORDERED: NS 1,000 ML IV ONE ×2 (10:29→12:14)
[2019-08-07] MEDS ORDERED: NORFLEX IV ONE (10:29)
[2019-08-07 11:11] LABS: BASO# 0.03 X1000 (0.0-0.2); BASO% 0.1 % (0.0-0.8); HEMATOCRIT 58.5 % (37.0-47.0); HEMOGLOBIN 19.4 g/dL (12.0-16.0); IMM GRAN# 0.07 X1000 (0.0-0.04); IMM GRAN% 0.3 % (0.0-0.5); LYMPH% 8.4 % (20.5-51.1); MCH 30.6 PG (27-31); MCHC 33.2 g/dL (33-37); MCV 92.4 FL (81-99); MONO# 1.39 X1000 (0.11-0.59); MONO% 6.9 % (1.7-9.3); MPV 10.3 FL (7.4-10.4); NEUT# 17.01 X1000 (1.4-6.5); NEUT% 84.3 % (42.2-75.2); PLT 343 X1000 (130-400); RBC 6.33 XMIL (4.2-5.4)
[2019-08-07 11:30] LABS: ALB/GLOB RATIO 1.3; ALBUMIN 5.1 g/dL (3.5-5.0); CALCIUM 10.9 mg/dL (8.8-10.2); CREATININE 2.3 mg/dL (0.5-0.9); POTASSIUM 3.4 mmol/L (3.5-5.1); TOTAL BILIRUBIN 0.66 mg/dL (0.20-1.00); TOTAL PROTEIN 8.9 g/dL (6.3-8.3)
[2019-08-07] MEDS ORDERED: ZOSYN 3.375 GM in NS 50 ML IV ONE (12:14)
[2019-08-07 12:28] LABS: INR 0.97; PROTIME 12.9 Seconds (11.0-16.0)
[2019-08-07 12:29] LABS: PTT 25.3 Seconds (22.3-41.8)
--- NOTE | 2019-08-07 12:53 | Diag Imaging Result Doc PS360 ---
EXAM: CHEST-1 VIEW HISTORY: possible sepsis TECHNIQUE: Chest single view COMPARISON: 01/23/2019 FINDINGS: The lungs are well expanded. The heart is not enlarged. The vessels are not distended. There are no infiltrates. No effusion identified. IMPRESSION: No pneumonia Electronically signed by Jeb Gaona 08/07/2019 12:51 PM
[2019-08-07 13:30] LABS: URINE SOURCE CLEAN CATCH
[2019-08-07 13:38] LABS: BILIRUBIN URINE SMALL (NEGATIVE); BLOOD URINE MODERATE (NEGATIVE); COLOR ORANGE; GLUCOSE URINE NEGATIVE (NEGATIVE); KETONE URINE 20 mg/dL (NEGATIVE); LEUKOCYTES URINE LARGE (NEGATIVE); NITRITE URINE NEGATIVE (NEGATIVE); PROTEIN URINE 200 mg/dL (NEGATIVE); SP GRAVITY URINE 1.037; TURBIDITY URINE TURBID (CLEAR); UROBILINOGEN URINE 4 mg/dL (NORMAL)
--- NOTE | 2019-08-07 13:49 | Diag Imaging Result Doc PS360 ---
EXAM: CT ABDOMEN/PELVIS W/O CONTRAST HISTORY: abdominal pain, sepsis, acute kidney injury TECHNIQUE: CT abdomen and pelvis without contrast COMPARISON: 01-23-19 FINDINGS: There is a small hiatal hernia. The gallbladder is contracted. No focal hepatic abnormality identified. There is fatty infiltration of the liver. Normal spleen, pancreas, and adrenal glands. There is a 3mm nonobstructing stone in the left kidney. No hydronephrosis. Normal aorta. Air and fluid mildly distended loops of bowel. Normal appendix. No abscess. The uterus has been removed. the urinary bladder is only mildly distended. IMPRESSION: 1. Small hiatal hernia 2. There is a 3mm non obstructing left renal stone. 3. Ileus or partial small bowel obstruction 4. Hysterectomy This exam was performed using automated exposure control, adjustment of mA or kV according to patient size, and/or use of iterative reconstruction technique. Electronically signed by Jeb Gaona 08/07/2019 1:47 PM
[2019-08-07 13:51] LABS: UR EPITHELIAL CELLS >10 /HPF (<10); URINE BACTERIA NEGATIVE /HPF; URINE RBC 20-40 /HPF (<10); URINE WBC TNTC /HPF (<10)
[2019-08-07] MEDS ORDERED: ZOFRAN IV ONE (14:06)
--- NOTE | 2019-08-07 14:18 | PROVIDER DOCUMENTATION ---
This chart was entered by Mario Kraft Scribe, acting as scribe for El Gaytan MD. HPI-General Adult - General Chief Complaint: N/V/D Stated Complaint: N/V/D Time Seen by Provider: 08/07/19 10:22 Source: patient Allergies/Adverse Reactions: Patient Allergies Allergy/AdvReac Type Severity Reaction Status Date / Time doxycycline Allergy Severe ANAPHYLAXIS Verified 08/07/19 10:58 orange juice Allergy Intermediate RASH Verified 08/07/19 10:58 Sulfa (Sulfonamide Allergy Intermediate Unknown Verified 08/07/19 10:58 Antibiotics) [Sulfa(Sulfonamide Antibiotics)] tramadol Allergy Intermediate RASH Verified 08/07/19 10:58 ibuprofen Allergy NAUSEA/VOMI Verified 08/07/19 10:58 TING tramadol HCl * [From Ultram] AdvReac Mild NAUSEA/VOMITING; Verified 08/07/19 10:58 STEPHENS Home Medications: Home Medication List Medication Instructions Recorded Confirmed Last Taken Type Melatonin/Pyridoxine [Melatonin 5 1 ea PO HS 01/24/19 08/07/19 01/14/19 21:00 History mg Tablet] Vilazodone HCl [Viibryd] 40 mg PO HS 01/24/19 08/07/19 01/21/19 21:00 History 20 mg - History of Present Illness -Gen Adult Nature of Presenting Problems: Pt is a 49 y/o F presents to the ED with N/V/D that began yesterday but reports she has not felt well for a couple days before. SHe says the vomit contains some bile and trace of blood from her wretching. She says some watery eyes and runny nose also with a left sided headache. She denies getting the flu shot this year. She denies fever. Location of Pain/Injury: reports: abdomen, generalized Pain Radiation: reports: no radiation Quality of Pain: reports: other (Nausea and vomiting) Severity: reports: moderate Onset/Duration: reports: 24 hours ago Timing: reports: still present Context/Activities at Onset: reports: none Modifying Factors: improves with: nothing Associated Symptoms: reports: diarrhea, fatigue, headaches, nausea, vomiting, other (watery eyes, runny nose). denies: back/neck pain, cough, fever/chills, shortness of breath, trouble walking Similar Symptoms Previously?: No Recently seen or treated by another doctor?: No Review of Systems - Adult - REVIEW OF SYSTEMS - ADULT Constitutional: denies: chills, fever Eyes: reports: no symptoms reported Ears, Nose, Mouth & Throat: reports: no symptoms reported Cardiovascular: denies: chest pain, edema Respiratory: denies: cough, shortness of breath, wheezing Gastrointestinal: reports: diarrhea, nausea, vomiting. denies: abdominal pain Genitourinary: denies: dysuria, discharge, flank pain Musculoskeletal: denies: back pain, neck pain Integumentary: denies: hives, itching Neurological: reports: headache/migraines. denies: dizziness/vertigo, slurred speech Psychiatric: reports: no symptoms reported Endocrine: reports: no symptoms reported Hematologic/Lymphatic: reports: no symptoms reported Allergic/Immunologic: reports: no symptoms reported All Other Systems: Reviewed and Negative Past History - Adult - PAST MEDICAL HISTORY-ADULT Review of Records: reports: Old Records Reviewed, Nursing Assessment Review, Medications Reviewed Major Childhood Illnesses: reports: denies history Cardiovascular: reports: denies history Respiratory: reports: denies history Gastrointestinal: reports: IBS Obstetrical/Gynecological: reports: endometriosis, other (uterine prolapse) Genitourinary: reports: denies history Musculoskeletal: reports: arthritis, chronic pain, fibromyalgia, intervertebral disc disease Neurological: reports: headaches/migraines Endocrine/Immune: reports: denies history Other Conditions: reports: denies history - PRIOR SURGERIES/PROCEDURES Surgical/Procedure History: reports: colonoscopy, hysterectomy, tonsillectomy, orthopedic (extremity) - IMMUNIZATION STATUS Childhood Immunizations: See Nurse Assessment Flu Vaccine: See Nurse Assessment - FAMILY HISTORY Family History: reviewed, not pertinent - SOCIAL HISTORY Smoking: cigarettes Provider spent 3-5 mins advising pt. on dangers of tobacco.: Discussed manners to quit use, and f/u contacts for add'l counseling. Living Situation: family Physical Exam-General - PHYSICAL EXAM-ADULT Initial Vital Signs Reviewed: Yes - CONSTITUTIONAL General Appearance: alert, no apparent distress - EYES Eyes: PERRL/EOMI, pink conjunctivae - HEAD, EARS, NOSE, MOUTH & THROAT HENMT: TMs normal, pharyngeal erythema. negative: moist mucous membranes (Dry throat) - NECK Neck: non-tender, full range of motion, supple - RESPIRATORY Respiratory: lungs clear, normal breath sounds, no pleuratic chest pain, no respiratory distress, no accessory muscle use, increased rate - CARDIOVASCULAR Cardiovascular: normal peripheral pulses, tachycardia - GASTROINTESTINAL (ABDOMEN) Abdominal Exam: normal bowel sounds, non tender, soft - MUSCULOSKELETAL Back Exam: normal inspection, no CVA tenderness, no vertebral tenderness Extremity: normal range of motion, non-tender, normal gait, normal inspection - SKIN Integumentary: normal color, normal turgor, warm/dry - NEUROLOGIC Neurologic: grossly normal, no motor/sensory deficits - PSYCHIATRIC Psych/Mental Status: normal mood/affect, normal thought content, normal thought process, oriented x 3 Progress - PLAN OF CARE/RESULTS Progress/Plan/Lab Results: Vital Signs - 8 hr 08/07/19 10:19 Temperature 97.6 F Pulse Rate 119 H Respiratory Rate 17 Blood Pressure 125/77 O2 Sat by Pulse Oximetry 95 Result Diagrams: 08/07/19 10:49 08/07/19 10:49 - REASSESSMENT Reassessment #1 Time Reassessed: 12:17 Status: improving (Pt is resting quietly and reports she is feeling better. She says she has had kidney damage in the past per her Dr Aguilar when she was dehydrated.) Reassessment #2 Time Reassessed: 14:07 Status: improving (but still nauseus. Will give Zofran IV. Patient has sepsis, acute kidney injury, pyelonephritis, and ileus. Will ask hospitalist to admit) - XRAY 1 XRAY Study: Chest Impression: Normal ( EXAM: CHEST-1 VIEW HISTORY: possible sepsis TECHNIQUE: Chest single view COMPARISON: 01/23/2019 FINDINGS: The lungs are well expanded. The heart is not enlarged. The vessels are not distended. There are no infiltrates. No effusion identified. IMPRESSION: No pneumonia Electronically signed by Jeb Gaona 08/07/2019 12:51 PM 08/07/19 1251 Interpreting Physician: Jeb Gaona MD Dictated Date/Time: 08/07/19 1251 cc: El Gaytan MD; Clay Aguilar MD), See EMR Report - CT/MRI 1 CT Study: Abdomen, Pelvis Impression: Abnormal (EXAM: CT ABDOMEN/PELVIS W/O CONTRAST HISTORY: abdominal pain, sepsis, acute kidney injury TECHNIQUE: CT abdomen and pelvis without contrast COMPARISON: 01-23-19 FINDINGS: There is a small hiatal hernia. The gallbladder is contracted. No focal hepatic abnormality identified. There is fat ty infiltration of the liver. Normal spleen, pancreas, and adrenal glands. There is a 3mm nonobstructing stone in the left kidney. No hydronephrosis. Normal aorta. Air and fluid mildly distended loops of bowel. Normal appendix. No abscess. The uterus has been removed. the urinary bladder is only mildly distended. IMPRESSION: 1. Small hiatal hernia 2. There is a 3mm non obstructing left renal stone. 3. Ileus or partial small bowel obstruction 4. Hysterectomy This exam was performed using automated exposure control, adjustment of mA or kV according to patient size, and/or use of iterative reconstruction technique. Electronically signed by Jeb Gaona 08/07/2019 1:47 PM 08/07/19 1347 Interpreting Physician: Jeb Gaona MD Dictated Date/Time: 08/07/19 1337 cc: El Gaytan MD; Clay Aguilar MD), See EMR Report - CONSULTS/PCP/HOSPITALIST Notification #1 *Consult/PCP/Hospitalist*: Hospitalist paged at [phone] Time Discussed: 14:10 (Rana returned call) Consult Disposition: Will see in ED, Admit Departure - Departure Date of Disposition Decision: 08/07/19 Time of Disposition Decision: 14:08 DIAGNOSIS: Nausea, vomiting, and diarrhea, Tobacco use disorder, Ileus, unspecified Sepsis with acute renal failure Qualifiers: Sepsis type: sepsis due to unspecified organism Acute renal failure type: with acute tubular necrosis Severe sepsis shock status: without septic shock Qualified Code(s): A41.9 - Sepsis, unspecified organism; R65.20 - Severe sepsis without septic shock; N17.0 - Acute kidney failure with tubular necrosis Disposition: ADMITTED INPATIENT 09 Certified Medical Emergency: Emergent Condition: Fair Referrals and Follow-Ups: Clay Aguilar MD [Primary Care Provider] - - Critical Care Note This patient required my direct & personal management of CC.: Yes Total Time (mins): 35 (renal system required mult interventions/critical thinking) Critical Care Statement: This patient required my direct personal management to treat or rule out processes, the absence of which, could potentiallly result in sudden, clinically significant life or limb threatening deterioration. Attestation - Physician/ SCOOTER Attestation Patient care was provided by Advanced Practice Provider:: No The physician spent face to face time with patient:: Yes Advanced Practice Provider documentation review:: Supervising physician onsite and consulted in the evaluation and care of this patient. The physician did have a face to face encounter with the patient. This chart was documented by the indicated scribe, (Mario Kraft Scribe) and accurately reflects the services I performed and decisions made by me, El Gaytan MD, as attested by the provider's signature.
[2019-08-07] MEDS ORDERED: ZOFRAN IV PRN ×2 (14:20→15:46)
[2019-08-07 14:21] LABS: URINE CASTS NONE SEEN; URINE CRYSTALS NONE SEEN; URINE TRICHOMONAS PRESENT; URINE YEAST NONE SEEN
[2019-08-07] MEDS ORDERED: SODIUM CHLORIDE 0.9% INJ SCH (14:30)
[2019-08-07] MEDS ORDERED: TYLENOL PO PRN (15:46)
[2019-08-07] MEDS: FLAGYL 500 MG/NS 500 MG/100 ML IVPB IV SCH (16:59)
[2019-08-07] MEDS: NS 1,000 ML IV SCH (16:59)
[2019-08-07] MEDS: PROTONIX IV SCH (16:59)
[2019-08-07] MEDS: TYLENOL PO PRN ×2 (17:18→23:20)
--- NOTE | 2019-08-07 17:34 | HISTORY AND PHYSICAL ---
PRIMARY CARE PROVIDER: Dr. Clay Aguilar. CHIEF COMPLAINT: Nausea, vomiting, diarrhea for 2 days. HISTORY OF PRESENT ILLNESS: Ms. An Oakes is a 49-year-old female with a medical history of chronic back pain, anxiety, depression, migraines, who presented with complaints of symptoms that started actually more than 2 days ago, on so at least 3 days ago. She started having symptoms of nausea and she felt so bad and ran down and laid in bed all day Thursday. She has had nausea, vomiting, and diarrhea that started yesterday. It was yellow-green, both the emesis and the stool. Decreased appetite since . Really has not eaten since then. She did have chills. She did have some right lower quadrant and upper quadrant abdominal pain, but it would radiate into her back, burning with urination, foul smelling urine, and she also feels like she has vaginitis. Even started having some sneezing this morning. She states that she has been out in public places such as [employer], but she is not sure if she has really been around anybody that has had a stomach virus. We will admit her. It looks like she is very dehydrated with some mild acute kidney injury, a urinary tract infection. She also claims vaginitis and either ileus versus a partial small bowel obstruction, so we will just put her on clears for now. PAST MEDICAL HISTORY: 1. Chronic back pain. 2. Migraines. 3. Anxiety. 4. Depression. 5. History of endometriosis with hysterectomy. SURGICAL HISTORY: 1. Tonsillectomy. 2. Hysterectomy. 3. Left oophorectomy. SOCIAL HISTORY: One to two packs of cigarettes a day. She has been smoking since the age of 10. She drinks anywhere from 2 to 3 beers about once every 2 months. Denies any illicit drug use. Significant other is at the bedside. Currently works as a caregiver. FAMILY HISTORY: Mother and aunt with breast cancer. Father with diabetes, hypertension, congestive heart failure, and hyperlipidemia. She also states that alcoholism runs in her family. ALLERGIES: Doxycycline, sulfa, tramadol, ibuprofen, and oranges. HOME MEDICATIONS: 1. Melatonin 10 mg p.o. nightly. 2. Viibryd 40 mg p.o. nightly. REVIEW OF SYSTEMS: Fourteen point review of systems are complete and all were negative except for those mentioned above in HPI. PHYSICAL EXAMINATION: VITAL SIGNS: Temperature 98.3 degrees, heart rate 72, respiratory rate 18, blood pressure 138/73, O2 saturation 99% on room air. She is 5 feet 6 inches tall, 135 pounds, BMI is 21.8. GENERAL: Ms. An Oakes is a 49-year-old female. She is in no acute distress. She is able to answer questions appropriately. HEENT: Atraumatic, normocephalic. Pupils equal, round, reactive to light. Extraocular movements intact. Mucous membranes are moist. NECK: Trachea midline. CARDIOVASCULAR: S1, S2. Regular rate and rhythm. No rubs, gallops, murmurs. No lower extremity edema. There are +2 dorsalis and radial pulses. Negative JVD or carotid bruits. PULMONARY: Clear to auscultation. Bilateral breath sounds. No accessory muscle use or work of breathing noted. GI: Soft, nondistended. Positive bowel sounds x4. Tenderness actually is in the right upper and lower quadrant to palpation. EXTREMITIES: Moves all extremities equally. Full range of motion. NEUROLOGIC: A O x3. Follows commands. Sensory is intact. SKIN: Warm, dry, intact. LABORATORY DATA: White blood cells 20,000, hemoglobin 19, hematocrit 58, platelet count 343,000. INR 0.97, PTT is 25.3. Sodium 138, potassium 3.4, BUN 16, creatinine is 2.3, glucose 127, calcium 10.9. CK 72. Troponin less than 0.01. Albumin is 5.1. Serum lactate 1.8 and 1.1. Urinalysis, 200 protein, 20 ketones, moderate blood, small bilirubin, 4 urobilinogen, large leukocytes, too numerous to count white blood cells, 20 to 40 red blood cells, greater than 10 epithelial cells. Bacteria is negative. Trichomonas is positive. IMAGING: Abdominal and pelvic CT: Small hiatal hernia. There is a 3 mm nonobstructive left renal stone, ileus or partial small bowel obstruction, hysterectomy, normal appendix. Chest x- ray: No pneumonia. ASSESSMENT AND PLAN: 1. Intractable nausea, vomiting, diarrhea. IV fluids will be given, antiemetics. 2. Likely viral gastroenteritis. See #1. 3. Urinary tract infection with positive Trichomonas in the urine. Currently on Zosyn. We will change antibiotic therapy if needed. 4. Acute kidney injury secondary to dehydration. Again, she will get IV fluid hydration. 5. Ileus versus partial small bowel obstruction. She can be on clear liquids and she will need to get up and move around and walk. 6. Tobacco abuse. Cessation discussed. 7. Chronic back pain. 8. Anxiety, depression. She is on Viibryd. We will resume that. 9. Deep venous thrombosis prophylaxis. SCDs. Dictated by CRYSTAL Flores for Clay Aguilar MD cc: CRYSTAL Flores MD
--- NOTE | 2019-08-07 18:26 | HISTORY AND PHYSICAL ---
ADDENDUM: Patient seen and examined by myself. Full note dictated and discussed with nurse practitioner. HISTORY OF PRESENT ILLNESS: Patient presented to the hospital with nausea, vomiting, and abdominal pain. States that she has been sick for a couple of days, but today it worsened to the point that she felt like she need to come to the hospital. Notes that this morning she had some blood in her emesis but has not had that prior to today after several episodes of vomiting. Feels like she has a UTI as well with some burning on urination. ALLERGIES: Currently she is allergic to doxycycline and sulfa. PHYSICAL EXAMINATION: VITAL SIGNS: Stable. Blood pressure 130/73. GENERAL: She is pleasant, but is ill appearing. ABDOMEN: Soft and mildly tender. LABORATORY DATA: Creatinine is 2.3. PLAN: We are going to admit patient to the hospital. IV fluids. We are going to start her on Flagyl as she does have Trichomonas as well. We will observe her. It is possible that she has a small bowel ileus. If her emesis worsens, certainly will need to have GI involved at that point. cc: Clay Aguilar MD
[2019-08-07] MEDS: ZOSYN 3.375 GM in NS 50 ML IV SCH (18:32)
[2019-08-07] MEDS ORDERED: FLU VACCINE IM ONE (19:34)
[2019-08-07] MEDS ORDERED: VIIBRYD PO SCH (21:00)
[2019-08-07] MEDS ORDERED: MELATONIN PO SCH ×2 (21:00)
[2019-08-08] MEDS: ZOSYN 3.375 GM in NS 50 ML IV SCH ×2 (01:53→08:04)
[2019-08-08] MEDS: PROTONIX IV SCH (01:54)
[2019-08-08] MEDS: FLAGYL 500 MG/NS 500 MG/100 ML IVPB IV SCH ×2 (01:55→09:14)
[2019-08-08] MEDS: NS 1,000 ML IV SCH (02:02)
[2019-08-08 06:22] LABS: INR 1.11; PROTIME 14.4 Seconds (11.0-16.0)
[2019-08-08 06:23] LABS: PTT 25.2 Seconds (22.3-41.8)
[2019-08-08 06:27] LABS: BASO# 0.02 X1000 (0.0-0.2); BASO% 0.2 % (0.0-0.8); EOS# 0.01 X1000 (0.0-0.7); EOS% 0.1 % (0.0-10.0); HEMATOCRIT 45.8 % (37.0-47.0); HEMOGLOBIN 15.2 g/dL (12.0-16.0); IMM GRAN# 0.04 X1000 (0.0-0.04); IMM GRAN% 0.3 % (0.0-0.5); LYMPH# 2.12 X1000 (1.2-3.4); MCH 31.5 PG (27-31); MCHC 33.2 g/dL (33-37); MONO# 0.89 X1000 (0.11-0.59); MONO% 6.7 % (1.7-9.3); MPV 10.3 FL (7.4-10.4); NEUT# 10.21 X1000 (1.4-6.5); NEUT% 76.7 % (42.2-75.2); PLT 253 X1000 (130-400); RBC 4.82 XMIL (4.2-5.4); RDW 13.6 % (11.5-14.5); WBC 13.29 X1000 (4.8-10.8)
[2019-08-08 06:37] LABS: HEMOGLOBIN A1C 5.2 % (4.8-6.0)
[2019-08-08 06:44] LABS: TSH 0.77 uIUmL (0.27-4.20)
[2019-08-08 07:02] LABS: AGAP 16; ALB/GLOB RATIO 1.4; ALKALINE PHOSPHATASE 55 U/L (32-104); BUN 17 mg/dL (8-22); CHLORIDE 101 mmol/L (98-107); COSMO 272; CREATININE 0.9 mg/dL (0.5-0.9); ESTIMATED GFR > 60; GLUCOSE 76 mg/dL (70-104); GOT 11 U/L (10-30); GPT 6 U/L (10-36); MAGNESIUM 1.9 mg/dL (1.5-2.7); POTASSIUM 3.1 mmol/L (3.5-5.1); SODIUM 136 mmol/L (136-145); TCO2 19 mmol/L (25-35); TOTAL BILIRUBIN 0.63 mg/dL (0.20-1.00); TOTAL PROTEIN 6.8 g/dL (6.3-8.3)
--- NOTE | 2019-08-08 07:46 | Diag Imaging Result Doc PS360 ---
ABDOMEN FLAT/UPRIGHT - 08/08/2019 INDICATION: ileus vs partial sbo COMPARISON: CT from 08/07/2019 FINDINGS: There is a nonobstructive bowel gas pattern. No free air or abdominal calcifications. There is no constipation. IMPRESSION: Negative exam. Electronically signed by Bakari Kc 08/08/2019 7:43 AM
[2019-08-08 07:53] VITALS: BP 118/52
[2019-08-08 10:01] LABS: CALCIUM 8.7 mg/dL (8.8-10.2)
--- NOTE | 2019-08-08 13:49 | PROGRESS NOTE ---
DATE: 08/08/2019 SUBJECTIVE: Patient notes she is feeling tremendously better. Denies any fevers, chills. Denies cough. States her nausea is improved. She has had no emesis. Denies any diarrhea. PHYSICAL EXAMINATION: Temperature 98 degrees, pulse 78, respiratory rate 18, BP 112/65.General: Patient is pleasant. She is in no respiratory distress. She is awake, alert, oriented. HEENT: Normocephalic, atraumatic. PERRLA. Neck: Supple. Cardiovascular: Regular rate. Chest: Clear. Abdomen: Soft. Extremities: Moves all extremities. ASSESSMENT: 1. Small bowel ileus appears to have resolved. [*] currently pending. 2. Intractable nausea, vomiting, appears to have resolved. We are going to advance her to full liquids as tolerated and advance to a GI soft diet. 3. Chronic tobacco abuse. 4. Chronic pain. 5. Chronic anxiety. PLAN: We will continue patient in the hospital continue antibiotics. We will check a KUB. Advance diet, and will follow. cc: Clay Aguilar MD
--- NOTE | 2019-08-09 07:38 | DISCHARGE SUMMARY ---
ADMISSION DATE: 08/07/2019 DISCHARGE DATE: 08/08/2019 DISCHARGE DIAGNOSES: 1. Trichomonas in her urine. 2. Intractable nausea and vomiting, resolved. 3. Gastroenteritis, improved. 4. Acute kidney injury, resolved. 5. Chronic tobacco abuse. CONSULTATIONS: None. PROCEDURES: None. BRIEF HOSPITAL COURSE: The patient is a 49-year-old female who presented to the hospital, treated in the usual fashion, felt to have small bowel ileus versus obstruction. She was held n.p.o. overnight and she did have some hematemesis that is felt to be secondary to [*] tear after violent vomiting for several hours. Thankfully, she has had no further hematemesis. She has had no melena or hematochezia. Her hemoglobin and hematocrit has remained stable. Her symptoms have resolved. KUB was normal. DISPOSITION: We are going to discharge the patient home. We will continue to follow as needed. Discussed with her to continue a soft diet for the next several days and advance as tolerated. cc: Clay Aguilar MD
== END 2019-08-08 14:10 | disposition home or self-care (01) ==
LOC: ED 10:14 → INTOOBSV 14:39 → EDIPHOLD 14:39 → 4N 16:49
PROVIDERS: ATTEND Family Medicine